=== PATIENT | male | born 1965 | race Caucasian/White ===

== ENCOUNTER 2018-06-06 19:45 | Inpatient (IN) ==
[2018-06-06] MEDS ORDERED: CEFEPIME 2,000 MG/12.5 ML VIAL IV STA (20:13)
[2018-06-06] MEDS ORDERED: ACETAMINOPHEN 1,000 MG/100 ML VIAL IV STA (20:13)
[2018-06-06] MEDS ORDERED: SODIUM CHLORIDE 0.9% 1000ML 1,000 ML IV ONE (20:13)
--- NOTE | 2018-06-06 20:29 | XRay Report ---
XR chest 1V portable CLINICAL HISTORY: Sepsis COMPARISON STUDY: March 2018 FINDINGS: The cardiac and mediastinal contours are normal. There is no evidence of focal pulmonary co nsolidation. There is no evidence of failure. No pleural effusions are visualized.[ IMPRESSION: No active disease in the chest. Electronically signed by: Bartolo Styles M.D. 06/06/2018 8:28 PM
[2018-06-06 21:06] LABS: Basophils # (auto) 0.04 K/uL (0-0.2); Basophils % (auto) 0.2 %; Eosinophils # (auto) 0.22 K/uL (0-0.5); Hematocrit (blood only) 41.2 % (42-52); Hemoglobin 14.2 g/dL (14.0-18.0); Immature Granulocytes # (auto) 0.07 K/uL (0.00-0.02); Immature Granulocytes % (auto) 0.3 %; Lymphocytes # (auto) 1.33 K/uL (1.2-3.4); Lymphocytes % (auto) 6.2 %; Mean Corpuscular Hgb Conc 34.5 g/dL (32-36); Mean Corpuscular Volume 89.8 fL (80-100); Mean Platelet Volume 10.1 fL (7.4-10.4); Monocytes # (auto) 0.61 K/uL (0.11-0.59); Monocytes % (auto) 2.9 %; Neutrophils # (auto) 19.11 K/uL (1.4-6.5); Neutrophils % (auto) 89.4 %; Platelet Count 298 K/uL (130-400); RDW Coefficient of Variation 13.3 % (11.5-14.5); RDW Standard Deviation 43.7 fL (36.4-46.3); Red Blood Count 4.59 M/uL (4.7-6.1); White Blood Count 21.38 K/uL (4.8-10.8)
[2018-06-06 21:22] LABS: Albumin Level 3.3 gm/dl (3.4-5.0); BUN Creatinine Ratio 14.5 (10-20); Calcium 9.4 mg/dl (8.5-10.1); Creatinine Clr Calc Pharmacy 78.9 ml/min; Est GFR (African American) 73.1; Magnesium 2.1 mg/dl (1.8-2.4); Potassium 3.6 mmol/L (3.5-5.1)
[2018-06-06 21:25] LABS: Albumin Globulin Ratio 0.7 (0.9-2); Bilirubin,Total 0.5 mg/dl (0.2-1); Globulin 4.5 gm/dl (2.5-4.0); Total Protein 7.8 gm/dl (6.4-8.2)
[2018-06-06 21:29] LABS: INR 1.1 (0.9-1.1); Partial Thromboplastin Ratio 0.9; Partial Thromboplastin Time 25.7 Seconds (21.0-31.0); Prothrombin Time 11.1 Seconds (9.0-12.0)
[2018-06-06 21:30] LABS: Influenza A virus by PCR Neg for Influ A (Neg); Influenza B virus by PCR Neg for Influ B (Neg)
[2018-06-06] MEDS ORDERED: IOVERSOL 100ml IV PRN (21:49)
--- NOTE | 2018-06-06 21:58 | CT Scan Report ---
CT ANGIOGRAM OF THE CHEST CLINICAL HISTORY: Atypical chest pain and sepsis. Possible pulmonary embolism. COMPARISON STUDY: Chest x-ray dated 06/06/2018 TECHNIQUE: Following the IV administration of 118 mL of Optiray-320, CT angiogram of the thorax was p erformed from the thoracic inlet to the lung bases utilizing the pulmonary embolus protocol. Images a re reviewed in the axial, sagittal, and coronal planes. IV contrast was administered without complica tion. MIP imaging was performed. A dose lowering technique was utilized adhering to the principles o f ALARA. CT DOSE: 494.04 mGy.cm FINDINGS: There is mild hilar and mediastinal lymphadenopathy. There is no pathologic axillary lymphadenopathy. There is a 23 mm subcarinal lymph node. There was no evidence of thoracic aortic dilatation. There is suboptimal lower lobe pulmonary arterial opacification. There are no filling defects to delia shaista acute pulmonary embolism. No pleural effusions are visualized. There are diffuse increased groundglass attenuation the lungs. There is mild lower lobe septal thicke pa. No pleural effusions are visualized. IMPRESSION: 1. Suboptimal lower lobe pulmonary arterial opacification, but no evidence of acute pulmonary embolis m 2. Mild mediastinal and hilar lymphadenopathy 3. Diffuse increased groundglass attenuation the lungs. Diagnostic considerations include a diffuse i nfectious/inflammatory process, or atypical presentation of pulmonary edema. Clinical and radiographi c follow-up is recommended Electronically signed by: Bartolo Styles M.D. 06/06/2018 9:56 PM
--- NOTE | 2018-06-06 22:00 | Emergency Department Note ---
Entered by Elsie Young acting as a scribe for Herve Burns MD History of Present Illness General Chief complaint: Abnormal Labs/Diagnostic Testing Stated complaint: WHITE BLOOD COUNT HIGH Time Seen by Provider: 06/06/18 20:10 Source: patient Mode of arrival: ambulatory Limitations: no limitations History of Present Illness Provider complaint: abnormal lab results Onset (ago): hour(s) ("few hours ago today") Location: chest Severity: moderate Pain Consistency: + constant Maximum Pain Intensity: 4 Associated symptoms: + fever/chills; no nausea/vomiting Treatments prior to arrival: other (Tylenol and Steroid inhaler) Patient is a 52 year old male presenting to the ED with abnormal labs found today. Patient states that about x4 months ago, he began to have a dry cough with fevers and headaches. He notes that his sx have been intermittent until x2 weeks ago, when his cough returned. Cough is moderate in severity and worsening since onset. Patient shares cough is mostly dry except when showering, where he coughs up white phlegm. shares that patient almost fell this morning while showering due to a coughing fit, and prompted patient to report to PCP. At PCP, patients WBC was noted to be 31,000. Patient notes he did have a fever last night. Patient notes he did take Tylenol a few hours ago. He shares he has taken x2 Z packs and one round of prednisone since original onset x4 months ago. Patient notes that his does have similar sx, but is on her 3rd round of antibiotics. Patient notes he has received his flu shot this year. He notes that he does take medication for high cholesterol. Patient has hx of asthma, and denies any smoking hx. He denies any other complaints or concerns at this time. Home Medications Home Medications Medication Instructions Recorded Confirmed Type Kumbucha 1 dose PO DAILY 06/06/18 06/06/18 History atorvastatin [Lipitor] 10 mg PO DAILY 06/06/18 06/06/18 History cetirizine [Zyrtec] 10 mg PO DAILY 06/06/18 06/06/18 History fluticasone furoate [Arnuity 1 puff INHALATION DAILY 06/06/18 06/06/18 History Ellipta] ibuprofen 400 mg PO TID PRN 06/06/18 06/06/18 History montelukast [Singulair] 10 mg PO DAILY 06/06/18 06/06/18 History multivitamin 1 tab PO DAILY 06/06/18 06/06/18 History Allergies Allergy/AdvReac Type Severity Reaction Status Date / Time Penicillins Allergy Intermediate RASH Unverified 06/06/18 22:41 BEE STINGS Allergy Severe ANAPHYLAXIS Uncoded 06/06/18 22:41 TREES , POLLEN Allergy Intermediate ICTHY,SNEEZ Uncoded 06/06/18 22:41 E,SWELLS Past Med/Surg History Medical History Asthma (Chronic) Family history non-contributory Surgical History No pertinent past surgical history Family History Other Family history non-contributory Social History Feels Safe at Home: Yes Review of Systems See HPI for pertinent positives & negatives. and A total of 10 systems reviewed and were otherwise negative Physical Exam Vital Signs Vital Signs - 24 hr 06/06/18 20:06 06/06/18 20:34 06/06/18 20:41 Temperature 37.2 C Temperature Source Oral Sepsis Recent Fever Within 48 Hours No Sepsis Action Taken by Nursing No Action Required Pulse Rate 71 70 Pulse Rate [Left Apical] Pulse Rate from SpO2 Sensor 68 Pulse Rhythm [Left Apical] Pulse Strength [Left Apical] Respiratory Rate 18 24 Respiratory Effort / Characteristics Non-Labored Spontaneous Respiratory Depth Normal Respiratory Pattern Blood Pressure 133/85 Blood Pressure [Right Arm] Blood Pressure Mean 101 Blood Pressure Mean [Right Arm] Blood Pressure Position [Right Arm] Pulse Oximetry 89 L 91 Oxygen Delivery Method Room Air Nasal Cannula 06/06/18 20:45 06/06/18 20:51 06/06/18 20:52 Temperature Temperature Source Sepsis Recent Fever Within 48 Hours Sepsis Action Taken by Nursing Pulse Rate 68 58 L Pulse Rate [Left Apical] 66 Pulse Rate from SpO2 Sensor 68 60 Pulse Rhythm [Left Apical] Regular Pulse Strength [Left Apical] Normal Respiratory Rate 22 20 22 Respiratory Effort / Characteristics Non-Labored Spontaneous SOB on Exertion Respiratory Depth Normal Respiratory Pattern Regular Blood Pressure 130/83 Blood Pressure [Right Arm] 130/83 Blood Pressure Mean 98 Blood Pressure Mean [Right Arm] 98 Blood Pressure Position [Right Arm] Sitting Pulse Oximetry 93 94 94 Oxygen Delivery Method Nasal Cannula 06/06/18 21:00 06/06/18 21:15 06/06/18 21:30 Temperature Temperature Source Sepsis Recent Fever Within 48 Hours Sepsis Action Taken by Nursing Pulse Rate 66 62 65 Pulse Rate [Left Apical] Pulse Rate from SpO2 Sensor 68 61 65 Pulse Rhythm [Left Apical] Pulse Strength [Left Apical] Respiratory Rate 22 26 H 29 H Respiratory Effort / Characteristics Respiratory Depth Respiratory Pattern Blood Pressure 126/78 130/68 Blood Pressure [Right Arm] Blood Pressure Mean 94 88 Blood Pressure Mean [Right Arm] Blood Pressure Position [Right Arm] Pulse Oximetry 93 95 94 Oxygen Delivery Method 06/06/18 21:51 06/06/18 21:57 06/06/18 22:00 Temperature Temperature Source Sepsis Recent Fever Within 48 Hours Sepsis Action Taken by Nursing Pulse Rate 66 66 66 Pulse Rate [Left Apical] Pulse Rate from SpO2 Sensor 66 67 65 Pulse Rhythm [Left Apical] Pulse Strength [Left Apical] Respiratory Rate 28 H 27 H 29 H Respiratory Effort / Characteristics Respiratory Depth Respiratory Pattern Blood Pressure 145/85 H 130/79 132/82 Blood Pressure [Right Arm] Blood Pressure Mean 105 96 98 Blood Pressure Mean [Right Arm] Blood Pressure Position [Right Arm] Pulse Oximetry 94 93 92 Oxygen Delivery Method 06/06/18 22:15 06/06/18 22:30 06/06/18 22:45 Temperature Temperature Source Sepsis Recent Fever Within 48 Hours Sepsis Action Taken by Nursing Pulse Rate 66 62 62 Pulse Rate [Left Apical] Pulse Rate from SpO2 Sensor 67 62 63 Pulse Rhythm [Left Apical] Pulse Strength [Left Apical] Respiratory Rate 26 H 8 L 14 Respiratory Effort / Characteristics Respiratory Depth Respiratory Pattern Blood Pressure 131/76 105/72 131/78 Blood Pressure [Right Arm] Blood Pressure Mean 94 83 95 Blood Pressure Mean [Right Arm] Blood Pressure Position [Right Arm] Pulse Oximetry 90 93 92 Oxygen Delivery Method 06/06/18 23:00 06/06/18 23:15 06/06/18 23:16 Temperature Temperature Source Sepsis Recent Fever Within 48 Hours Sepsis Action Taken by Nursing Pulse Rate 76 64 64 Pulse Rate [Left Apical] Pulse Rate from SpO2 Sensor 75 64 63 Pulse Rhythm [Left Apical] Pulse Strength [Left Apical] Respiratory Rate 13 22 20 Respiratory Effort / Characteristics Respiratory Depth Respiratory Pattern Blood Pressure 126/85 139/83 Blood Pressure [Right Arm] Blood Pressure Mean 98 101 Blood Pressure Mean [Right Arm] Blood Pressure Position [Right Arm] Pulse Oximetry 96 94 93 Oxygen Delivery Method 06/06/18 23:30 06/06/18 23:45 06/07/18 00:03 Temperature 36.5 C Temperature Source Oral Sepsis Recent Fever Within 48 Hours Sepsis Action Taken by Nursing Pulse Rate 61 59 L Pulse Rate [Left Apical] Pulse Rate from SpO2 Sensor 60 60 Pulse Rhythm [Left Apical] Pulse Strength [Left Apical] Respiratory Rate 18 17 Respiratory Effort / Characteristics Respiratory Depth Respiratory Pattern Blood Pressure 132/81 129/89 Blood Pressure [Right Arm] Blood Pressure Mean 98 102 Blood Pressure Mean [Right Arm] Blood Pressure Position [Right Arm] Pulse Oximetry 94 96 Oxygen Delivery Method GENERAL: Patient is in no acute distress. HEENT: No acute trauma, normocephalic atraumatic, mucous membranes moist, no nasal congestion, no scleral icterus. NECK: No stridor, no adenopathy, no meningismus, trachea is midline. LUNGS: Clear to auscultation bilaterally, no wheeze, no rhonchi, breath sounds equal. HEART: Without murmurs gallops or rubs, regular rate and rhythm. ABDOMEN: Soft, nontender, bowel sounds positive, no hernias, no peritonitis. EXTREMITIES: No cyanosis or edema, full range of motion of all the joints without pain or difficulty, no signs for acute trauma. NEUROLOGIC: Oriented x 3, no acute motor or sensory deficits, no focal weakness. SKIN: No rash, no jaundice, no diaphoresis. Course 2011: The patient was evaluated in room B09, and a complete history and physical examination were performed. 2129: Updated patient on plans for admission. He is agreeable to plan. 2147: Discussed case with Dr. Ifeoma Hu, who accepts patient for admission. 2220: Updated patient on CTA. Administered Medications Ioversol (Optiray 320 100ml) 118 ml IV ONCE PRN PRN Reason: Interaction Checking Stop: 06/10/18 21:48 Last Admin: 06/06/18 21:50 Dose: 118 ml Documented by: [id number] Discontinued Medications Acetaminophen (Ofirmev) 1,000 mg in 100 mls @ 400 mls/hr IV NOW STA Stop: 06/06/18 20:27 Last Infusion: 06/06/18 21:20 Dose: 0 mls/hr Documented by: [id number] Admin: 06/06/18 20:57 Dose: 400 mls/hr Documented by: [id number] Cefepime HCl (Maxipime) 2,000 mg in 12.5 mls @ 3.125 mls/min IV NOW STA Stop: 06/06/18 20:16 Last Admin: 06/06/18 21:54 Dose: 3.125 mls/min Documented by: [id number] Sodium Chloride (Nss 1000ml) 1,000 mls @ 999 mls/hr IV .Q1H1M ONE Stop: 06/06/18 21:13 Last Infusion: 06/06/18 21:55 Dose: 0 mls/hr Documented by: [id number] Admin: 06/06/18 20:58 Dose: 999 mls/hr Documented by: [id number] Medical Decision Making Differential Diagnosis Differential Diagnosis includes:pneumonia or bronchitis, malignancy, exacerbation of asthma, influenza, anemia, PE, or [place] Medical Records Attestation: I reviewed the patient's medical records. Home Medications Current Medication List: was personally reviewed by me Laboratory Data Attestation: I reviewed the patient's lab results. Result diagrams: 06/06/18 20:36 06/06/18 20:36 Lab Results 06/06/18 06/06/18 06/06/18 Range/Units 20:36 20:36 20:36 WBC 21.38 H D (4.8-10.8) K/uL RBC 4.59 L (4.7-6.1) M/uL Hgb 14.2 (14.0-18.0) g/dL Hct 41.2 L (42-52) % MCV 89.8 (80-100) fL MCH 30.9 (25-34) pg MCHC 34.5 (32-36) g/dL RDW Std Deviation 43.7 (36.4-46.3) fL RDW Coeff of Jose Roberto 13.3 (11.5-14.5) % Plt Count 298 (130-400) K/uL MPV 10.1 (7.4-10.4) fL Immature Gran % (Auto) 0.3 % Neut % (Auto) 89.4 % Lymph % (Auto) 6.2 % [place] % (Auto) 2.9 % Eos % (Auto) 1.0 % Baso % (Auto) 0.2 % Immature Gran # (Auto) 0.07 H (0.00-0.02) K/uL Neut # (Auto) 19.11 H (1.4-6.5) K/uL Lymph # (Auto) 1.33 (1.2-3.4) K/uL [place] # (Auto) 0.61 H (0.11-0.59) K/uL Eos # (Auto) 0.22 (0-0.5) K/uL Baso # (Auto) 0.04 (0-0.2) K/uL PT 11.1 (9.0-12.0) Seconds INR 1.1 (0.9-1.1) APTT 25.7 (21.0-31.0) Seconds PTT Ratio 0.9 Sodium 142 (136-145) mmol/L Potassium 3.6 (3.5-5.1) mmol/L Chloride 109 H (98-107) mmol/L Carbon Dioxide 26 (21-32) mmol/L Anion Gap 7.0 (3-11) BUN 19 H (7-18) mg/dl Creatinine 1.28 (0.6-1.4) mg/dl Est Cr Clr Drug Dosing 78.9 ml/min Est GFR ( Amer) 73.1 Est GFR (Non-Af Amer) 63.0 BUN/Creatinine Ratio 14.5 (10-20) Glucose 100 H (70-99) mg/dl Lactate (0.4-2.0) mmol/L Calcium 9.4 (8.5-10.1) mg/dl Magnesium 2.1 (1.8-2.4) mg/dl Total Bilirubin 0.5 (0.2-1) mg/dl AST 18 (15-37) U/L ALT 28 (12-78) U/L Alkaline Phosphatase 71 (45-117) U/L Total Protein 7.8 (6.4-8.2) gm/dl Albumin 3.3 L (3.4-5.0) gm/dl Globulin 4.5 H (2.5-4.0) gm/dl Albumin/Globulin Ratio 0.7 L (0.9-2) Influenza Type A (PCR) (Neg) Influenza Type B (PCR) (Neg) 06/06/18 06/06/18 Range/Units 20:40 20:48 WBC (4.8-10.8) K/uL RBC (4.7-6.1) M/uL Hgb (14.0-18.0) g/dL Hct (42-52) % MCV (80-100) fL MCH (25-34) pg MCHC (32-36) g/dL RDW Std Deviation (36.4-46.3) fL RDW Coeff of Jose Roberto (11.5-14.5) % Plt Count (130-400) K/uL MPV (7.4-10.4) fL Immature Gran % (Auto) % Neut % (Auto) % Lymph % (Auto) % [place] % (Auto) % Eos % (Auto) % Baso % (Auto) % Immature Gran # (Auto) (0.00-0.02) K/uL Neut # (Auto) (1.4-6.5) K/uL Lymph # (Auto) (1.2-3.4) K/uL [place] # (Auto) (0.11-0.59) K/uL Eos # (Auto) (0-0.5) K/uL Baso # (Auto) (0-0.2) K/uL PT (9.0-12.0) Seconds INR (0.9-1.1) APTT (21.0-31.0) Seconds PTT Ratio Sodium (136-145) mmol/L Potassium (3.5-5.1) mmol/L Chloride (98-107) mmol/L Carbon Dioxide (21-32) mmol/L Anion Gap (3-11) BUN (7-18) mg/dl Creatinine (0.6-1.4) mg/dl Est Cr Clr Drug Dosing ml/min Est GFR ( Amer) Est GFR (Non-Af Amer) BUN/Creatinine Ratio (10-20) Glucose (70-99) mg/dl Lactate 1.3 (0.4-2.0) mmol/L Calcium (8.5-10.1) mg/dl Magnesium (1.8-2.4) mg/dl Total Bilirubin (0.2-1) mg/dl AST (15-37) U/L ALT (12-78) U/L Alkaline Phosphatase (45-117) U/L Total Protein (6.4-8.2) gm/dl Albumin (3.4-5.0) gm/dl Globulin (2.5-4.0) gm/dl Albumin/Globulin Ratio (0.9-2) Influenza Type A (PCR) Neg for Influ A (Neg) Influenza Type B (PCR) Neg for Influ B (Neg) Imaging Data Radiologist's Impression: XR chest 1V portable CLINICAL HISTORY: Sepsis COMPARISON STUDY: March 2018 FINDINGS: The cardiac and mediastinal contours are normal. There is no evidence of focal pulmonary consolidation. There is no evidence of failure. No pleural effusions are visualized. IMPRESSION: No active disease in the chest. Electronically signed by: Bartolo Styles M.D. 06/06/2018 8:[address] ANGIOGRAM OF THE CHEST CLINICAL HISTORY: Atypical chest pain and sepsis. Possible pulmonary embolism. COMPARISON STUDY: Chest x-ray dated 06/06/2018 TECHNIQUE: Following the IV administration of 118 mL of Optiray-320, CT angiogram of the thorax was performed from the thoracic inlet to the lung bases utilizing the pulmonary embolus protocol. Images are reviewed in the axial, sagittal, and coronal planes. IV contrast was administered without complication. MIP imaging was performed. A dose lowering technique was utilized adhering to the principles of ALARA. CT DOSE: 494.04 mGy.cm FINDINGS: There is mild hilar and mediastinal lymphadenopathy. There is no pathologic axillary lymphadenopathy. There is a 23 mm subcarinal lymph node. There was no evidence of thoracic aortic dilatation. There is suboptimal lower lobe pulmonary arterial opacification. There are no filling defects to indicate acute pulmonary embolism. No pleural effusions are visualized. There are diffuse increased groundglass attenuation the lungs. There is mild lower lobe septal thickening. No pleural effusions are visualized. IMPRESSION: 1. Suboptimal lower lobe pulmonary arterial opacification, but no evidence of acute pulmonary embolism 2. Mild mediastinal and hilar lymphadenopathy 3. Diffuse increased groundglass attenuation the lungs. Diagnostic considerations include a diffuse infectious/inflammatory process, or atypical presentation of pulmonary edema. Clinical and radiographic follow-up is recommended Electronically signed by: Bartolo Styles M.D. 06/06/2018 9:56 PM ECG Data Attestation: I personally reviewed and interpreted this ECG as follows: Indication: other (abnormal labs) Rate (beats per minute): 58 Rhythm: sinus bradycardia Findings: no PAC, no PVC, no ST elevation and no ectopy Blood Pressure Blood Pressure Findings: Normal blood pressure MDM Narrative There is a significant leukocytosis at 21,000. No concerning anemia. No coagulopathy. No significant electrolyte abnormality or kidney failure. Lactic acid level is not elevated making sepsis less likely. No evidence for hepatitis. Influenza testing is negative. Chest x-ray does not show pneumonia or CHF. Chest CT shows a diffuse inflammation consistent with a potential diffuse pneumonitis. No evidence for pulmonary embolus. Blood cultures are pending. The patient did present hypoxic. He was placed on nasal cannula O2. He received IV Tylenol, IV cefepime and IV saline. He seems to be resting comfortably. Patient has a high white count, fever and hypoxia. He does have a respiratory infection, possibly diffuse pneumonia. I do think a hospital stay is warranted. I spoke to the patient and case management social worker. The on-call hospitalist was consulted. Impression & Plan Hypoxia, Shortness of breath, Leukocytosis Discharge Plan Visit Data Chief Complaint: Abnormal Labs/Diagnostic Testing Stated Complaint: WHITE BLOOD COUNT HIGH ED Provider: Herve Burns Discharge Problem: Hypoxia, Shortness of breath, Leukocytosis Forms Stand Alone Forms: [facility] Prescriptions Prescriptions: No Action cetirizine [Zyrtec] 10 mg Tablet 10 mg PO DAILY RF: 0 atorvastatin [Lipitor] 10 mg tablet 10 mg PO DAILY RF: 0 ibuprofen 200 mg Tablet 400 mg PO TID PRN (Reason: Pain) RF: 0 montelukast [Singulair] 10 mg tablet 10 mg PO DAILY RF: 0 Arnuity Ellipta 100 mcg/actuation blister with device 1 puff inhalation DAILY RF: 0 Kumbucha 1 dose PO DAILY RF: 0 multivitamin Tablet 1 tab PO DAILY RF: 0 Discharge Problem: Leukocytosis Qualifiers: Leukocytosis type: unspecified Qualified Code(s): D72.829 - Elevated white blood cell count, unspecified The scribe's documentation has been prepared under my direction and personally reviewed by me in its entirety. I confirm that the note above accurately reflects all work, treatment, procedures, and medical decision making performed by me.
--- NOTE | 2018-06-06 23:58 | History & Physical Report ---
Date of Service June 06, 2018 Assessment & Plan (1) Hypoxia: 52-year-old male with past medical history of asthma and hyperlipidemia presents with leukocytosis and hypoxia. Patient has baseline pulmonary symptoms and fever for the past month. Symptoms have now worsen, but he was sent over by PCP today for lab findings. Hypoxia and leukocytosis, feverssymptoms since January CT and chest x-ray does not show distinct consolidationsit did show "diffuse groundglass attenuation of the lungs and hilar nodes, consider diffuse infectious/inflammatory process" Considering the following differential to describe the patient's symptoms hypersensitivity pneumonitis, interstitial pneumonia, atypical pneumonia, congestive heart failure PFTs on 04/27/2018 showed mild airflow obstructionnormal forced vital capacity, FEV1 was mildly decreased, mild decrease of FEV1/FVC ratio. Repeat PFTs with bronchodilator did not show significant improvementmaking this less likely secondary to history of asthma Obtaining the following; ESR, CRP, sputum cultures, blood cultures, pro- calcitonin, BMP, HIV, CHRIS EBV pending. Flu and Lyme are negative Empiric antibiotic treatmenttreating as an atypical pneumoniadoxycycline IV 100 mg twice daily Hyperlipidemia Continue statin Asthma Continue inhalers, continue cetirizine, continue montelukast FEN Regular diet DVT prophylaxis SCDs/ambulation Code Full (2) Shortness of breath: (3) Leukocytosis: (4) No pertinent past surgical history: (5) Asthma: History of Present Illness Primary Care Provider: Danay Bingham MD 52-year-old male with a history of asthma and hyperlipidemia presents with leukocytosis and hypoxia. Patient was getting lab work today and was found to have a white count of 31,000. The patient was being evaluated for pulmonary symptoms and fevers that he has been having for the past couple monthsstarting in January. The patient has had follow-up with primary care doctor and is been treated for asthma exacerbation and atypical pneumonia with 2 courses of Z-Michael. The patient states that he gets better for a little bit but the symptoms return. His symptoms include dyspnea with exertion, cough, fever and fatigue. He states that the fever happens in the evenings a couple times throughout the week and his temperature is usually as high as 102 F. His states that she is also been sick during this duration, but not as sick. She is also been on antibiotics. Patient denies hemoptysis. He denies travel, IV drug use, risky sexual activity, concern for HIV. 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 He does describe that he was cleaning his basement this January before the symptoms began. He was digging and states that there was a lot of mold in the basement. Abdomen; no abdominal pain, no nausea/vomiting/diarrhea Chest; no chest pain, no hemoptysis MSK; no joint pains, no calf tenderness Skin; no rash, no redness or warmth of the skin ; no issues with urinationno hematuria, no dysuria, no increased frequency Allergies Allergy/AdvReac Type Severity Reaction Status Date / Time bee venom protein (honey bee) Allergy Severe Anaphylaxis Verified 06/07/18 01:13 Penicillins Allergy Intermediate RASH Unverified 06/06/18 22:41 Home Medications Home Medications Medication Instructions Recorded Confirmed Type Kumbucha 1 dose PO DAILY 06/06/18 06/06/18 History atorvastatin [Lipitor] 10 mg PO DAILY 06/06/18 06/06/18 History cetirizine [Zyrtec] 10 mg PO DAILY 06/06/18 06/06/18 History fluticasone furoate [Arnuity 1 puff INHALATION DAILY 06/06/18 06/06/18 History Ellipta] ibuprofen 400 mg PO TID PRN 06/06/18 06/06/18 History montelukast [Singulair] 10 mg PO DAILY 06/06/18 06/06/18 History multivitamin 1 tab PO DAILY 06/06/18 06/06/18 History Past Med/Surg History Medical History Asthma (Chronic) Family history non-contributory Surgical History No pertinent past surgical history Family History Other Family history non-contributory Social History Feels Safe at Home: Yes Review of Systems All systems reviewed & are unremarkable except as noted in HPI & below Physical Exam Vital Signs (Past 24 Hours): Last Vital Signs Temp 37.2 C 06/06/18 20:06 Pulse 76 06/06/18 23:00 Resp 13 06/06/18 23:00 BP 126/85 06/06/18 23:00 Pulse Ox 96 06/06/18 23:00 Constitutional: WD/WN, vitals as above Eyes: PERRL, conjunctivae normal, anicteric sclerae ENMT: external ear and nose normal, oropharynx normal Neck: trachea midline, no thyromegaly Respiratory: normal respiratory effort, lungs clear to auscultation Auscultation: + crackles (Bilateral bases) Cardiovascular: RRR, no murmur, no edema Gastrointestinal (Abdomen): normal bowel sounds, soft, nontender, no hepatosplenomegaly Skin: no rashes, warm and dry Neurologic: PERRL, EOMI, accommodation nl, no face palsy, no dysarthria Psychiatric: A+Ox3, euthymic affect Results & Data Laboratory Results Laboratory Last Values WBC 21.38 K/uL (4.8-10.8) H D 06/06/18 20:36 RBC 4.59 M/uL (4.7-6.1) L 06/06/18 20:36 Hgb 14.2 g/dL (14.0-18.0) 06/06/18 20:36 Hct 41.2 % (42-52) L 06/06/18 20:36 MCV 89.8 fL (80-100) 06/06/18 20:36 MCH 30.9 pg (25-34) 06/06/18 20:36 MCHC 34.5 g/dL (32-36) 06/06/18 20:36 RDW Std Deviation 43.7 fL (36.4-46.3) 06/06/18 20:36 RDW Coeff of Jose Roberto 13.3 % (11.5-14.5) 06/06/18 20:36 Plt Count 298 K/uL (130-400) 06/06/18 20:36 MPV 10.1 fL (7.4-10.4) 06/06/18 20:36 Immature Gran % (Auto) 0.3 % 06/06/18 20:36 Neut % (Auto) 89.4 % 06/06/18 20:36 Lymph % (Auto) 6.2 % 06/06/18 20:36 [place] % (Auto) 2.9 % 06/06/18 20:36 Eos % (Auto) 1.0 % 06/06/18 20:36 Baso % (Auto) 0.2 % 06/06/18 20:36 Immature Gran # (Auto) 0.07 K/uL (0.00-0.02) H 06/06/18 20:36 Neut # (Auto) 19.11 K/uL (1.4-6.5) H 06/06/18 20:36 Lymph # (Auto) 1.33 K/uL (1.2-3.4) 06/06/18 20:36 [place] # (Auto) 0.61 K/uL (0.11-0.59) H 06/06/18 20:36 Eos # (Auto) 0.22 K/uL (0-0.5) 06/06/18 20:36 Baso # (Auto) 0.04 K/uL (0-0.2) 06/06/18 20:36 PT 11.1 Seconds (9.0-12.0) 06/06/18 20:36 INR 1.1 (0.9-1.1) 06/06/18 20:36 APTT 25.7 Seconds (21.0-31.0) 06/06/18 20:36 PTT Ratio 0.9 06/06/18 20:36 Sodium 142 mmol/L (136-145) 06/06/18 20:36 Potassium 3.6 mmol/L (3.5-5.1) 06/06/18 20:36 Chloride 109 mmol/L (98-107) H 06/06/18 20:36 Carbon Dioxide 26 mmol/L (21-32) 06/06/18 20:36 Anion Gap 7.0 (3-11) 06/06/18 20:36 BUN 19 mg/dl (7-18) H 06/06/18 20:36 Creatinine 1.28 mg/dl (0.6-1.4) 06/06/18 20:36 Est Cr Clr Drug Dosing 78.9 ml/min 06/06/18 20:36 Est GFR ( Amer) 73.1 06/06/18 20:36 Est GFR (Non-Af Amer) 63.0 06/06/18 20:36 BUN/Creatinine Ratio 14.5 (10-20) 06/06/18 20:36 Glucose 100 mg/dl (70-99) H 06/06/18 20:36 Lactate 1.3 mmol/L (0.4-2.0) 06/06/18 20:48 Calcium 9.4 mg/dl (8.5-10.1) 06/06/18 20:36 Magnesium 2.1 mg/dl (1.8-2.4) 06/06/18 20:36 Total Bilirubin 0.5 mg/dl (0.2-1) 06/06/18 20:36 AST 18 U/L (15-37) 06/06/18 20:36 ALT 28 U/L (12-78) 06/06/18 20:36 Alkaline Phosphatase 71 U/L (45-117) 06/06/18 20:36 Total Protein 7.8 gm/dl (6.4-8.2) 06/06/18 20:36 Albumin 3.3 gm/dl (3.4-5.0) L 06/06/18 20:36 Globulin 4.5 gm/dl (2.5-4.0) H 06/06/18 20:36 Albumin/Globulin Ratio 0.7 (0.9-2) L 06/06/18 20:36 Influenza Type A (PCR) Neg for Influ A (Neg) 06/06/18 20:40 Influenza Type B (PCR) Neg for Influ B (Neg) 06/06/18 20:40 Diagnostic Findings [place], [place] [phone] CT Scan Report Patient: NEAL MOROCHO HAdmit Date: 06/06/18 MR#: [id number]: [address] Acct ID:[id number]: Date: 1965[facility] Zip: [place] [address] Age: 52Location: ED Sex: M Room/Bed: Att Phy: Diagnosis: WHITE BLOOD COUNT HIGH Leyla Phy: Danay Bingham MDService Date: 06/06/18 Fam Phy: Interpreting Phy: Bartolo Styles MD Admit Phy: Ordering Phy: Herve Burns M.D. cc: ~ CT ANGIOGRAM OF THE CHEST CLINICAL HISTORY: Atypical chest pain and sepsis. Possible pulmonary embolism. COMPARISON STUDY: Chest x-ray dated 06/06/2018 TECHNIQUE: Following the IV administration of 118 mL of Optiray-320, CT angiogram of the thorax was performed from the thoracic inlet to the lung bases utilizing the pulmonary embolus protocol. Images are reviewed in the axial, sagittal, and coronal planes. IV contrast was administered without complication. MIP imaging was performed. A dose lowering technique was utilized adhering to the principles of ALARA. CT DOSE: 494.04 mGy.cm FINDINGS: There is mild hilar and mediastinal lymphadenopathy. There is no pathologic axillary lymphadenopathy. There is a 23 mm subcarinal lymph node. There was no evidence of thoracic aortic dilatation. There is suboptimal lower lobe pulmonary arterial opacification. There are no filling defects to indicate acute pulmonary embolism. No pleural effusions are visualized. There are diffuse increased groundglass attenuation the lungs. There is mild lower lobe septal thickening. No pleural effusions are visualized. IMPRESSION: 1. Suboptimal lower lobe pulmonary arterial opacification, but no evidence of acute pulmonary embolism 2. Mild mediastinal and hilar lymphadenopathy 3. Diffuse increased groundglass attenuation the lungs. Diagnostic considerations include a diffuse infectious/inflammatory process, or atypical presentation of pulmonary edema. Clinical and radiographic follow-up is recommended Electronically signed by: Bartolo Styles M.D. 06/06/2018 9:56 PM Dictated: 06/06/182151 Transcribed: 06/06/182151 XRay Report Patient: NEAL MOROCHO HAdmit Date: 06/06/18 MR#: [id number]: [address] Acct ID:[id number]: Date: 1965[facility] Zip: [place] [address] Age: 52Location: ED Sex: M Room/Bed: Att Phy: Diagnosis: WHITE BLOOD COUNT HIGH Leyla Phy: Danay Bingham MDService Date: 06/06/18 Fam Phy: Interpreting Phy: Bartolo Styles MD Admit Phy: Ordering Phy: Herve Burns M.D. cc: ~ XR chest 1V portable CLINICAL HISTORY: Sepsis COMPARISON STUDY: March 2018 FINDINGS: The cardiac and mediastinal contours are normal. There is no evidence of focal pulmonary consolidation. There is no evidence of failure. No pleural effusions are visualized.[ IMPRESSION: No active disease in the chest. Electronically signed by: Bartolo Styles M.D. 06/06/2018 8:28 PM Dictated: 06/06/182026 Transcribed: 06/06/182026 Supervising Physician Co-Signing Physician Notes apollo seen and examined, chart reviewed, case discussed with Dr. Kapoor and I eva lopez his assessment and plan as documented above. Briefly, patient is a 52yo male with history of asthma presenting with leukocytosis, hypoxia, fevers. Patient reports cleaning out his basement in early January - was exposed to mold. In late January he began experiencing coug/SOB/fever/body aches and headache. He was given a Z-pack by his PCP. Returned 2 weeks later with similar symptoms and was given a second Z-pack and 10 days of Prednisone. Fevers and headache improved with treatment but cough and SOB persisted. Patietn also wtih fever to 102, last one this AM, chest tightness, SOB, GUERRA with minimal exertion. Patient was a runner previously and now becomes SOB after climbing a flight of stairs. PFTs obtained on 04/27/18 with mild obstructive pattern, no reversibility with bronchodilators. Patient seen by PCP today and had laboratory work - sent to ER due to leukocytosis, WBC=31. Never smoker, no history of CHF, had recent stress testing that was unremarkable. No occupational or recreational exposures. Hypoxic in ER to 88% on RA requiring supplemental O2. CT with mild mediastinal and hilar lymphadenopathy and diffuse increased groundglass attenuation the lungs. Diagnostic considerations include a diffuse infectious/inflammatory process, or atypical presentation of pulmonary edema. Exam with crackles in bilateral bases. No rhonchi or wheezes Remainder of exam unremarkable Assessment/Plan: Patient with 3+ months of progressive GUERRA, dry cough as well as fevers/chills, hypoxia. CT with ground glass opacities. ?nonspecific interstitial PNA - hyersensitivity pneumonitis, mold exposure? -Check ProCal -Check ESR and CRP -Check HIV and CHRIS -Pulmonary consult for additional recommendations - appreciate assistance -Remainder of plan as above Resident Activity Tracking Resident Involvement: Resident Care Provided Care Provided: Adult [facility] (1) Leukocytosis Leukocytosis type: unspecified Qualified Code(s): D72.829 - Elevated white blood cell count, unspecified
[2018-06-07] MEDS ORDERED: MAGNESIUM HYDROXIDE SUSP 30 ML UDC PO PRN (00:45)
[2018-06-07] MEDS ORDERED: IBUPROFEN 200 MG TAB PO PRN (00:45)
[2018-06-07] MEDS ORDERED: ACETAMINOPHEN 325 MG TAB PO PRN (00:45)
[2018-06-07] MEDS ORDERED: ONDANSETRON INJ 2 MG/ML 2 ML VIAL IV PRN (00:45)
[2018-06-07] MEDS ORDERED: ALUMINUM/MAGNESIUM SUSP 30 ML UDC PO PRN (00:45)
[2018-06-07] MEDS ORDERED: POLYETHYLENE (MIRALAX) 17 GM PACK PO PRN (00:45)
[2018-06-07] MEDS: DOXYCYCLINE HYCLATE 100 MG in DEXTROSE 5% 100 ML IV SCH ×2 (01:50→14:29)
[2018-06-07 07:22] LABS: C Reactive Protein 8.38 mg/dl (0-0.29)
[2018-06-07] MEDS ORDERED: ATORVASTATIN 10 MG TAB PO SCH ×2 (09:00→15:00)
[2018-06-07] MEDS ORDERED: MONTELUKAST SODIUM 10 MG TABLET PO SCH (09:00)
[2018-06-07] MEDS: CETIRIZINE HCL 10 MG TABLET PO SCH (09:12)
--- NOTE | 2018-06-07 10:26 | Family Medicine Progress Note ---
Date of Service June 07, 2018 Assessment & Plan (1) Hypoxia: Pt is a 52yo with PMHx of asthma and obstructive PFT results, who presents with leukocytosis, hypoxia and URI symptoms of approximately 3 months duration. Hypoxia with URI symptoms and leukocytosis. -CT shows ground glass opacifications and DDx is broad (atypical pneumonia, interstitial pneumonia, hypersensitivity) -ESR, CRP also elevated. CHRIS pending. -Lyme, HIV, flu, mono negative. EBV pending. -peripheral smear shows reactive leukocytosis. -Pulmonary consulted-possible BAL tomorrow. NPO after midnight. -s/p 2 azithromycin courses since January -Continue doxycycline currently, MRSA nasal swab pending. -continue O2 supplementation as needed. Asthma -continue home fluticasone inhaler, cetirizine and Singulair Hyperlipidemia -continue home lipitor Code: FULL CODE DVT Proph: SCDs Supervising Physician Co-Signing Physician Notes Resident Physician Supervision Note: I independently interviewed and examined the patient and verified the orantes history and physical, reviewed labs and image studies, discussed the case with the resident Dr. Marquez and agree with the findings and care plan. Subjective Pt states he's unchanged from admission. No significant fam hx but hx of ticks on person around December when symptoms started. Denies sick contacts except for , though to a lesser degree. Has cat and dog at home. Fevers, chills, night sweats when off abx. Cough, headache, SOB. Never hemoptysis. Review of Systems All systems reviewed & are unremarkable except as noted in HPI & below Physical Exam Vital Signs (Past 24 Hours): Last Vital Signs Temp 36.4 C L 06/07/18 07:19 Pulse 61 06/07/18 07:19 Resp 18 06/07/18 07:19 BP 133/75 06/07/18 07:19 Pulse Ox 95 06/07/18 07:19 General: Alert, oriented. HEENT: NC/AT, PERRLA, EOMI, oropharynx moist. NC in nares. Chest: Nontender to palpation. CV: RRR, Normal s1, s2. No murmurs appreciated Resp: Fine crackles at bases bilaterally. Abdomen: Soft, nontender, nondistended. No guarding. No organomegaly appreciated. Extremities: No edema. Results & Data Laboratory Results Laboratory Results - last 24 hr 06/06/18 06/06/18 06/06/18 20:36 20:36 20:36 WBC 21.38 H D RBC 4.59 L Hgb 14.2 Hct 41.2 L MCV 89.8 MCH 30.9 MCHC 34.5 RDW Std Deviation 43.7 RDW Coeff of Jose Roberto 13.3 Plt Count 298 MPV 10.1 Immature Gran % (Auto) 0.3 Neut % (Auto) 89.4 Lymph % (Auto) 6.2 [place] % (Auto) 2.9 Eos % (Auto) 1.0 Baso % (Auto) 0.2 Immature Gran # (Auto) 0.07 H Neut # (Auto) 19.11 H Lymph # (Auto) 1.33 [place] # (Auto) 0.61 H Eos # (Auto) 0.22 Baso # (Auto) 0.04 Peripher Smr Path Cons ESR PT 11.1 INR 1.1 APTT 25.7 PTT Ratio 0.9 Sodium 142 Potassium 3.6 Chloride 109 H Carbon Dioxide 26 Anion Gap 7.0 BUN 19 H Creatinine 1.28 Est Cr Clr Drug Dosing 78.9 Est GFR ( Amer) 73.1 Est GFR (Non-Af Amer) 63.0 BUN/Creatinine Ratio 14.5 Glucose 100 H Lactate Calcium 9.4 Magnesium 2.1 Total Bilirubin 0.5 AST 18 ALT 28 Alkaline Phosphatase 71 C-Reactive Protein NT-Pro-B Natriuret Pep Total Protein 7.8 Albumin 3.3 L Globulin 4.5 H Albumin/Globulin Ratio 0.7 L Procalcitonin Nasal Screen MRSA (PCR) HIV 1&2 Ab/P24 Ag 4thGn Influenza Type A (PCR) Influenza Type B (PCR) 06/06/18 06/06/18 06/07/18 20:40 20:48 06:01 WBC RBC Hgb Hct MCV MCH MCHC RDW Std Deviation RDW Coeff of Jose Roberto Plt Count MPV Immature Gran % (Auto) Neut % (Auto) Lymph % (Auto) [place] % (Auto) Eos % (Auto) Baso % (Auto) Immature Gran # (Auto) Neut # (Auto) Lymph # (Auto) [place] # (Auto) Eos # (Auto) Baso # (Auto) Peripher Smr Path Cons ESR 63 H PT INR APTT PTT Ratio Sodium Potassium Chloride Carbon Dioxide Anion Gap BUN Creatinine Est Cr Clr Drug Dosing Est GFR ( Amer) Est GFR (Non-Af Amer) BUN/Creatinine Ratio Glucose Lactate 1.3 Calcium Magnesium Total Bilirubin AST ALT Alkaline Phosphatase C-Reactive Protein NT-Pro-B Natriuret Pep Total Protein Albumin Globulin Albumin/Globulin Ratio Procalcitonin Nasal Screen MRSA (PCR) HIV 1&2 Ab/P24 Ag 4thGn Influenza Type A (PCR) Neg for Influ A Influenza Type B (PCR) Neg for Influ B 06/07/18 06/07/18 06/07/18 06:01 06:01 06:01 WBC RBC Hgb Hct MCV MCH MCHC RDW Std Deviation RDW Coeff of Jose Roberto Plt Count MPV Immature Gran % (Auto) Neut % (Auto) Lymph % (Auto) [place] % (Auto) Eos % (Auto) Baso % (Auto) Immature Gran # (Auto) Neut # (Auto) Lymph # (Auto) [place] # (Auto) Eos # (Auto) Baso # (Auto) Peripher Smr Path Cons ESR PT INR APTT PTT Ratio Sodium Potassium Chloride Carbon Dioxide Anion Gap BUN Creatinine Est Cr Clr Drug Dosing Est GFR ( Amer) Est GFR (Non-Af Amer) BUN/Creatinine Ratio Glucose Lactate Calcium Magnesium Total Bilirubin AST ALT Alkaline Phosphatase C-Reactive Protein 8.38 H NT-Pro-B Natriuret Pep 111 Total Protein Albumin Globulin Albumin/Globulin Ratio Procalcitonin 0.29 Nasal Screen MRSA (PCR) HIV 1&2 Ab/P24 Ag 4thGn Neg Influenza Type A (PCR) Influenza Type B (PCR) 06/07/18 06/07/18 06:01 09:20 WBC RBC Hgb Hct MCV MCH MCHC RDW Std Deviation RDW Coeff of Jose Roberto Plt Count MPV Immature Gran % (Auto) Neut % (Auto) Lymph % (Auto) [place] % (Auto) Eos % (Auto) Baso % (Auto) Immature Gran # (Auto) Neut # (Auto) Lymph # (Auto) [place] # (Auto) Eos # (Auto) Baso # (Auto) Peripher Smr Path Cons ESR PT INR APTT PTT Ratio Sodium Potassium Chloride Carbon Dioxide Anion Gap BUN Creatinine Est Cr Clr Drug Dosing Est GFR ( Amer) Est GFR (Non-Af Amer) BUN/Creatinine Ratio Glucose Lactate Calcium Magnesium Total Bilirubin AST ALT Alkaline Phosphatase C-Reactive Protein NT-Pro-B Natriuret Pep Total Protein Albumin Globulin Albumin/Globulin Ratio Procalcitonin Nasal Screen MRSA (PCR) Negative HIV 1&2 Ab/P24 Ag 4thGn Influenza Type A (PCR) Influenza Type B (PCR) Medications Administered Home Medications Kumbucha 1 dose PO DAILY 06/06/18 [History Confirmed 06/06/18] atorvastatin [Lipitor] 10 mg PO DAILY 06/06/18 [History Confirmed 06/06/18] cetirizine [Zyrtec] 10 mg PO DAILY 06/06/18 [History Confirmed 06/06/18] fluticasone furoate [Arnuity Ellipta] 1 puff INHALATION DAILY 06/06/18 [History Confirmed 06/06/18] ibuprofen 400 mg PO TID PRN 06/06/18 [History Confirmed 06/06/18] montelukast [Singulair] 10 mg PO DAILY 06/06/18 [History Confirmed 06/06/18] multivitamin 1 tab PO DAILY 06/06/18 [History Confirmed 06/06/18] Active Medications Acetaminophen (Tylenol) 650 mg PO Q4H PRN PRN Reason: pain/fever Stop: 07/07/18 00:44 Al Hydrox/Mg Hydrox/Simethicone (Maalox) 30 ml PO Q6H PRN PRN Reason: Dyspepsia Stop: 07/07/18 00:44 Atorvastatin Calcium (Lipitor) 10 mg PO TODAY@1500 [facility] Stop: 07/07/18 14:59 Last Admin: 06/07/18 14:30 Dose: 10 mg Documented by: Cetirizine HCl (Zyrtec) 10 mg PO DAILY [facility] Stop: 07/07/18 08:59 Last Admin: 06/07/18 09:12 Dose: 10 mg Documented by: Doxycycline Hyclate 100 mg/ (Dextrose) 110 mls @ 50 mls/hr IV Q12H ISAÍAS Stop: 06/14/18 01:59 Last Admin: 06/07/18 14:29 Dose: 50 mls/hr Documented by: Ibuprofen (Advil) 400 mg PO TID PRN PRN Reason: Pain Stop: 07/07/18 00:44 Ioversol (Optiray 320 100ml) 118 ml IV ONCE PRN PRN Reason: Interaction Checking Stop: 06/10/18 21:48 Last Admin: 06/06/18 21:50 Dose: 118 ml Documented by: Magnesium Hydroxide (Milk Of Magnesia) 30 ml PO Q6H PRN PRN Reason: Constipation Stop: 07/07/18 00:44 Miscellaneous (Order Awaiting Action) 1 ea N/A QS [facility] Stop: 07/07/18 01:29 Last Admin: 06/07/18 09:13 Dose: Not Given Documented by: Montelukast Sodium (Singulair) 10 mg PO Q24H [facility] Stop: 07/07/18 21:59 Ondansetron HCl (Zofran) 4 mg IV Q6H PRN PRN Reason: Nausea Stop: 07/07/18 00:44 Polyethylene Glycol (Miralax Powder Packet) 17 gm PO DAILY PRN PRN Reason: Constipation Stop: 07/07/18 00:44
[2018-06-07] MEDS: ATORVASTATIN 10 MG TAB PO SCH (14:30)
[2018-06-07] MEDS ORDERED: SODIUM CHLORIDE 0.65% NA SOLN 45 ML (OCEAN) ONE (14:41)
--- NOTE | 2018-06-07 16:56 | Anesthesiology Consultation ---
Date of Service June 07, 2018 Assessment & Plan Chart Review Chart Review: Acceptable Risk for Surgery and Patient NOT seen in Pre Admission Testing Consults Requested none History Surgery Operation Date: 06/08/18 07:15 Proposed Procedures p Right Thoracoscopy with Wedge Biopsy (Single Lumen Tube) - Cj Monsivais MD, FACS Height/Weight Height: 1.91 m Weight: 97 kg Allergies Allergy/AdvReac Type Severity Reaction Status Date / Time bee venom protein (honey bee) Allergy Severe Anaphylaxis Verified 06/07/18 01:13 Penicillins Allergy Intermediate RASH Unverified 06/06/18 22:41 Medications Home Medications Medication Instructions Recorded Confirmed Last Taken Kumbucha 1 dose PO DAILY 06/06/18 06/06/18 Unknown atorvastatin [Lipitor] 10 mg PO DAILY 06/06/18 06/06/18 06/06/18 15:00 cetirizine [Zyrtec] 10 mg PO DAILY 06/06/18 06/06/18 06/06/18 10:00 fluticasone furoate [Arnuity 1 puff INHALATION DAILY 06/06/18 06/06/18 06/06/18 07:00 Ellipta] ibuprofen 400 mg PO TID PRN 06/06/18 06/06/18 06/06/18 14:00 montelukast [Singulair] 10 mg PO DAILY 06/06/18 06/06/18 06/06/18 06:30 multivitamin 1 tab PO DAILY 06/06/18 06/06/18 Unknown Active Medications Generic Name Dose Route Start Last Admin Trade Name Freq PRN Reason Stop Dose Admin Atorvastatin Calcium 10 mg 06/07/18 15:00 06/07/18 14:30 Lipitor PO 07/07/18 14:59 10 mg TODAY@1500 ISAÍAS Administration Cetirizine HCl 10 mg 06/07/18 09:00 06/07/18 09:12 Zyrtec PO 07/07/18 08:59 10 mg DAILY ISAÍAS Administration Doxycycline Hyclate 100 mg/ 110 mls @ 50 mls/hr 06/07/18 02:00 06/07/18 16:43 Dextrose IV 06/14/18 01:59 Infused Q12H ISAÍAS Infusion Ioversol 118 ml 06/06/18 21:49 06/06/18 21:50 Optiray 320 100ml IV 06/10/18 21:48 118 ml ONCE PRN Administration Interaction Checking Past Medical History Medical History Asthma (Chronic) Hyperlipidemia Family history non-contributory Past Family History Family History Other Family history non-contributory Past Surgical History Surgical History No pertinent past surgical history Social History Smoking Status: Never smoker Hx Alcohol Use: Yes Alcohol type: wine and hard liquor alcohol intake frequency: a few times a month Alcohol Intake Frequency Comment: once a week Hx Substance Use: No substance use type: does not use Physical Exam Vital Signs Last Vital Signs Temp 36.8 C 06/07/18 15:42 Pulse 110 H 06/07/18 15:42 Resp 18 06/07/18 15:42 BP 127/79 06/07/18 15:42 Pulse Ox 95 06/07/18 15:42 Testing Electrocardiogram Date: 06/06/18 Findings: + SB @ (58) FINDINGS: The cardiac and mediastinal contours are normal. There is no evidence of focal pulmonary consolidation. There is no evidence of failure. No pleural effusions are visualized.[ IMPRESSION: No active disease in the chest. Chest X-Ray Date: 06/06/18 Findings: + NAD FINDINGS: The cardiac and mediastinal contours are normal. There is no evidence of focal pulmonary consolidation. There is no evidence of failure. No pleural effusions are visualized.[ IMPRESSION: No active disease in the chest. Pulmonary Function Test Date: 04/27/18 Spirometry shows a normal forced vital capacity. FEV1 was mildly decreased as was the FEV1/FVC ratio. This reflects mild airflow obstruction. Repeat study done following bronchodilator showed no significant change in function. Lung volumes are within the limits of normal. Diffusion was normal at 110%. Laboratory Results 06/06/18 20:36 06/06/18 20:36 PT 11.1 Seconds (9.0-12.0) 06/06/18 20:36 INR 1.1 (0.9-1.1) 06/06/18 20:36 APTT 25.7 Seconds (21.0-31.0) 06/06/18 20:36
[2018-06-07] MEDS: MONTELUKAST SODIUM 10 MG TABLET PO SCH (21:15)
--- NOTE | 2018-06-08 01:18 | Consultation Report ---
DATE OF CONSULTATION: 06/07/2018 PULMONARY MEDICINE CONSULT TIME: 1500. REASON FOR CONSULTATION: Hypoxemia associated with diffuse interstitial process. HISTORY OF PRESENT ILLNESS: A 52-year-old white male was admitted by Dr. Koir Hu on to the hospitalist service yesterday with progressive symptoms of dyspnea and hypoxemia. The patient was diagnosed with asthma several years ago and has been treated for that as well as dyslipidemia. He has been evaluated in the past by Dr. Cai and his physician advertising assistant Yaneli Keyes. He states he has been ill since January and his symptoms started with an upper respiratory infection that has not cleared with a nonproductive cough and associated dyspnea with exertion. He has been placed on antibiotics x2 and most recently a prednisone taper that was ineffectual. Because of progressive symptoms of dyspnea, he was brought to the Emergency Room and evaluated by the ER physician. He was seen by Dr. Herve Burns. He has had low grade fevers associated with headaches over the past 4 months and the symptoms have been intermittent but persistent. While his cough is somewhat better, it is still persistent as well and intractable. Following a coughing paroxysm while in the shower in the morning of admission, he had a presyncopal symptomatology. His white count was found to be 31,000 on admission. No hemoptysis or pleuritic pain has been noted. He has a negative smoking history with minimal secondary exposure. 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 No significant travel history noted. The house is heated with wood pallets as well as baseboard heating and there are wall to wall rugs in the bedroom, etc. A cat and dog are present. He did have moldy area in the basement that is not finished and he threw out the cardboard that had gotten wet and had mold growing in it. No significant mold seen on the dry wall or any other areas. The symptoms do not appear to be seasonal. Dr. Cai's records have been sent for. PAST MEDICAL HISTORY: I refer you to current and past record. PHYSICAL EXAMINATION: GENERAL: Reveals a well-developed, well-nourished white male appearing stable at rest in no obvious respiratory distress. VITAL SIGNS: Blood pressure 127/79, pulse 96 and regular, respiratory rate 18, temperature 36.8, O2 sat 95% on 2 liters. SKIN: Without lesion. HEENT: Atraumatic, normocephalic. PERRLA. EOMI. Conjunctivae pink. Sclerae nonicteric. Fundi poorly visualized. NECK: Neck veins are not distended at 45 degrees. No lymphadenopathy in the supra or infraclavicular areas. LUNGS: Some fine crackles at the bases, otherwise distant P and A. CARDIAC EXAM: Sinus tachycardia. I do not appreciate a gallop or murmur. ABDOMEN: Soft, scaphoid. No hepatosplenomegaly. EXTREMITIES: No pedal edema, clubbing or cyanosis. NEUROLOGIC: Intact. No lateralizing signs. LABORATORY DATA: CT scan once again shows diffuse ground-glass appearance both upper and lower lobes with some subcarinal adenopathy and 23 mm subcarinal lymph node. White count on admission 31,000, H and H 14 and 42. Leftward shift is seen. Sed rate 63. CT scan as noted. Blood cultures pending. PT, PTT, INR within normal limits. CHRIS pending. Lyme antibodies pending. EBV virus pending. HIV 1 and 2 negative. Influenza A and B PCR negative. OVERALL ASSESSMENT: A 52-year-old with history of asthma with progressive symptoms since January of dyspnea and hypoxemia associated with diffuse ground-glass attenuation of both lungs and subcarinal lymphadenopathy associated with low-grade fever and leukocytosis. I had a lengthy discussion with the patient. I believe we need to get a definitive answer and to maximize our yield. I have asked Dr. Cj Monsivais/Thoracic surgery to consult on the patient and consider robotic video-assisted thorascopic wedge biopsy tomorrow with removal of the subcarinal lymph node during the thorascopic procedure for more definitive diagnosis. The patient is amenable to proceeding at this point in time and will make patient n.p.o. after midnight. [facility]
[2018-06-08] MEDS: DOXYCYCLINE HYCLATE 100 MG in DEXTROSE 5% 100 ML IV SCH ×2 (02:14→17:24)
--- NOTE | 2018-06-08 02:14 | Consultation Report ---
DATE OF CONSULTATION: 06/07/2018 REASON FOR CONSULTATION: Bilateral pulmonary infiltrates, evaluate for possible biopsy. HISTORY OF PRESENT ILLNESS: Rajinder Arenas is an otherwise healthy 52-year-old male who is a lifetime nonsmoker who really is healthy. He developed some problem with his dehumidifier in his basement, had some wet cardboard and other problems which he removed but had developed some mold. Since that time, the patient has had a cough which is unresponsive to treatment. He has never coughed up anything other than an occasional clear sputum in the mornings. He has not had a febrile episode. He has had headaches and fevers but has had no documented pneumonia or fluid in his chest. He was admitted yesterday. He has a marked leukocytosis and was hypoxic. I reviewed his CT scan and his chest x-rays with Dr. Prieto Brannon. He is currently on doxycycline, but has not improved with inhalers and steroids. PAST MEDICAL HISTORY: 1. Hyperlipidemia. 2. Questionable asthma. 3. Leukocytosis. PAST SURGICAL HISTORY: None. MEDICATIONS: 1. Lipitor. 2. Zyrtec. 3. Ellipta. 4. Ibuprofen. 5. Singulair. ALLERGIES: PENICILLIN CAUSES A RASH. SOCIAL HISTORY: The patient lives with his and 16-year-old son in [facility]. He has never smoked cigarettes. 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 FAMILY MEDICAL HISTORY: Really noncontributory. His son is healthy. He has had no history of anything like this in his first degree relatives. REVIEW OF SYSTEMS: The patient states he has lost about 15 pounds in the last 3 months. He has had fevers with some sweats. He denies hemoptysis. He has really not had a productive cough. He denies nausea or vomiting or diarrhea. He denies palpitations or chest pain. He denies any joint pain or swelling. He has had no skin breakdown or petechia or rashes. He has had no dysuria or pyuria. He denies hematuria, hematemesis and hematochezia. He has had no hemoptysis. He has had no focal deficits. He denies photophobia. He has had headaches, but no seizures. PHYSICAL EXAMINATION: GENERAL: This is a 6 feet 3 inch approximately 215 pound male who is awake, alert and oriented. He is wearing supplemental oxygen. HEENT: Extraocular movements intact. Pupils are equal, round and reactive. Sclerae are anicteric. He has no nasolabial flattening. His tongue is midline. His teeth are in excellent repair. His nasal mucosa is without polyps. He has no oral mucosal lesion to suggest candidiasis. He has no supraclavicular or cervical lymphadenopathy. He has no axillary adenopathy. LUNGS: Clear. I do not really even detect crackles. HEART: He has regular rate and rhythm of his heart. ABDOMEN: Flat, soft, nontender with no evidence of ascites. MUSCULOSKELETAL: He has no joint effusions. EXTREMITIES: He has excellent peripheral pulses. NEUROLOGIC: He is completely intact. ASSESSMENT AND PLAN: 1. Bilateral pulmonary infiltrates with the patient with leukocytosis of a longstanding (over 3 months). Plan is, I going to offer the patient a right thoracoscopy with a wedge resection tomorrow morning on 06/08/2018. I had a long discussion with the patient, his and his 16-year-old son. We are all agreeable. We did discuss other modalities such as a fiberoptic bronchoscopy with cryoprobe biopsy versus transbronchial needle aspiration. Dr. Brannon and I feel this will be a low yield. For this reason, we are going to proceed with a thoracoscopic lung biopsy tomorrow on 06/08/2018.
--- NOTE | 2018-06-08 06:58 | History & Physical Bridge Note ---
Date of Service June 08, 2018 History & Physical Bridge Note I have examined the patient, reviewed the History & Physical and in the interval since the performance of the History & Physical I have noted the following changes of clinical significance: no changes noted
[2018-06-08] MEDS ORDERED: SODIUM CHLORIDE 0.9% PF 50 ML VIAL ONE (07:02)
[2018-06-08] MEDS ORDERED: BUPIVACAINE LIPOSOME 1.3% 266 MG/20 ML VIAL ONE (07:02)
[2018-06-08] MEDS ORDERED: BUPIVACAINE 0.5 % 5 MG/1 ML MPF 30ML VIAL ONE (07:02)
[2018-06-08] MEDS ORDERED: MIDAZOLAM HCL 1 MG/ML 2ML VIAL ONE (07:03)
[2018-06-08] MEDS ORDERED: ONDANSETRON INJ 2 MG/ML 2 ML VIAL ONE (07:03)
[2018-06-08] MEDS ORDERED: LIDOCAINE HCL 2% 2 ML VIAL/AMP(20MG/ML) INFIL ONE (07:03)
[2018-06-08] MEDS ORDERED: NEOSTIGMINE METHYLSULFATE 5 MG/5 ML SYR ONE (07:03)
[2018-06-08] MEDS ORDERED: PROPOFOL IV EMULSION 10 MG/ML 20 ML VIAL IV ONE (07:03)
[2018-06-08] MEDS ORDERED: fentaNYL citrate 100 MCG/2 ML VIAL ONE (07:03)
[2018-06-08] MEDS ORDERED: GLYCOPYRROLATE 0.2 MG/ML VIAL ONE ×2 (07:03→07:47)
[2018-06-08] MEDS ORDERED: DEXAMETHASONE SOD INJ 4 MG/ML VIAL ONE (07:03)
[2018-06-08] MEDS ORDERED: fentaNYL citrate 100 MCG/2 ML VIAL IV PRN (07:08)
[2018-06-08] MEDS ORDERED: ePHEDrine sulfate 50 MG/ML AMP IV PRN (07:08)
[2018-06-08] MEDS ORDERED: ATROPINE SULFATE 0.1 MG/ML 10ML SYR IV PRN (07:08)
[2018-06-08] MEDS ORDERED: HYDROmorphone INJ 1 MG/ML SYRINGE IV PRN (07:08)
[2018-06-08] MEDS ORDERED: PHENYLEPHRINE 100MCG/ML 5ML SYR IV PRN (07:08)
[2018-06-08] MEDS ORDERED: LABETALOL HCL IV 5 MG/ML 20ML IV PRN (07:08)
[2018-06-08] MEDS ORDERED: ONDANSETRON INJ 2 MG/ML 2 ML VIAL IV PRN (07:08)
[2018-06-08] MEDS ORDERED: MEPERIDINE HCL 25 MG/ML CARP IV PRN (07:08)
[2018-06-08] MEDS ORDERED: ALBUTEROL HFA INHALER 8.5 GM ONE ×2 (07:15→07:47)
[2018-06-08] MEDS ORDERED: CLINDAMYCIN PHOS 300 MG/2 ML VIAL ONE (07:38)
[2018-06-08] MEDS ORDERED: LARYING-O-JET KIT (LTA) ONE (07:47)
[2018-06-08] MEDS ORDERED: ROCURONIUM BROMIDE 10 MG/ML 5 ML VIAL ONE (07:47)
--- NOTE | 2018-06-08 08:09 | Post Operative Brief Note ---
Immediate Post Op Note v1 Date of Surgery June 08, 2018 Pre & Post Diagnosis Operation Date: 06/08/18 07:15 Pre and post op Diagnosis: Pulmonary infiltrates unknown etiology Procedure Operation Date: 06/08/18 07:15 Right thoracoscopy with wedge biopsy RUL, RML, RLL Surgeon Cj Monsivais MD, FACS Registered Art Therapist Anmol GILBERT Estimated Blood Loss 5 Findings Consistent with Post-Op Diagnosis
[2018-06-08] MEDS ORDERED: METOCLOPRAMIDE HCL INJ 5 MG/ML 2 ML VIAL IV ONE (08:45)
[2018-06-08] MEDS ORDERED: ALBUT/IPRATROP 3MG/0.5MG NEB 3 ML VIAL NEB STA (08:50)
--- NOTE | 2018-06-08 08:54 | XRay Report ---
XR chest 1V portable CLINICAL HISTORY: lung biopsy COMPARISON STUDY: 06/06/2018 FINDINGS: The heart is mildly enlarged. There are bilateral airspace opacities, likely representing p ulmonary edema. There is a right-sided chest tube. There is a 29 mm right apical pneumothorax. There is a line shadow paralleling the left chest wall, but this is irregular in appearance and is unlikely to represent a pneumothorax.[ IMPRESSION: 1. Normal right lung surgery with placement of a right-sided chest tube. 29 mm right apical pneumotho rax 2. Bilateral airspace opacities, likely representing pulmonary edema. Clinical and radiographic follo w-up is recommended Electronically signed by: Bartolo Styles M.D. 06/08/2018 8:52 AM
--- NOTE | 2018-06-08 09:32 | Anesthesiology Progress Note ---
Date of Service June 08, 2018 Anesthesia Post Procedure Vital Signs Vital Signs: Temp Pulse Pulse Resp BP BP Pulse Ox 06/08/18 09:20 61 15 149/80 H 96 06/08/18 09:10 62 21 151/84 H 95 06/08/18 09:00 63 20 145/80 H 93 06/08/18 08:58 87 18 92 06/08/18 08:50 63 15 132/73 93 06/08/18 08:42 36.5 C 75 19 119/67 93 06/08/18 06:49 37.1 C 57 L 19 116/70 90 06/08/18 06:28 36.4 C L 60 16 134/84 91 06/07/18 23:00 36.2 C L 58 L 20 130/71 94 06/07/18 15:42 36.8 C 110 H 18 127/79 95 Pain Intensity Posterior Medial Head: Pain Intensity: 1 Notes Mental Status: alert / awake / arousable Patient Amnestic to Procedure: Yes Nausea / Vomiting: adequately controlled Pain: adequately controlled Airway Patency, RR, SpO2: see Notes below BP & HR: stable & adequate Hydration State: stable & adequate Anesthetic Complications: no major complications apparent and Pt Satisfied with anesthetic care Notes: The patient's preop SpO2 was 90 on room air. The patient is awake and stable. He was given a Duoneb in PACU and SpO2 is in the mid 90s on nasal canula oxygen. He will have continous pulse oximetry on the floor.
--- NOTE | 2018-06-08 09:59 | Operative Report ---
DATE OF OPERATION: 06/08/2018 PREOPERATIVE DIAGNOSIS: Pulmonary infiltrates, unknown etiology with hypoxia. POSTOPERATIVE DIAGNOSIS: Pulmonary infiltrates, unknown etiology with hypoxia. PROCEDURE: Right thoracoscopy with wedge biopsy, right upper lobe, right middle lobe, right lower lobe. SURGEON: Cj Monsivais MD STONE SPLITTER: VLADIMIR Camacho (Mr. Gonzalez was present for the entire case). ANESTHESIA: General anesthesia with single lumen intubation. INDICATIONS FOR PROCEDURE AND FINDINGS: A 52-year-old male who is actually healthy except for some mild hyperlipidemia, who developed a cough about more than 3 months ago in January of 2018 and this cough never resolved. The patient has had headaches with fevers and although his cough is not really productive. After a long talk, we elected to proceed with a biopsy. He had some diffuse pulmonary infiltrates. On 06/08/2018, I brought the patient to the operating room, did an uncomplicated right thoracoscopy with a wedge biopsy of the right middle lobe, right lower lobe, right upper lobe. Frozen section showed some inflammatory changes, but no evidence of pulmonary fibrosis. Appropriate cultures were sent. He tolerated it well. We did do an intercostal block. DESCRIPTION OF PROCEDURE: The patient was brought to operating room and laid in supine position. General anesthesia induced. Endotracheal intubation was performed with single lumen tube. The patient was turned in left lateral decubitus position, after prepped and draped in usual sterile fashion and appropriate timeout was called, prophylactic antibiotics given. A 5 mm port was placed posterior to the scapula and another 5 mm port was placed anterior. Carbon dioxide was insufflated. There were no adhesions and in fact the fissures were well developed and the lungs themselves looked nice and pink. I did not see any obvious abnormalities. It should be noted on CT scan, these were diffuse changes. I did a wedge biopsy of the upper lobe with an Endo-ISH stapler, the middle lobe and the lower lobe. Frozen section of the lower lobe was sent off. I went over these with Dr. Venice Brooks. There were some mild inflammatory changes, but no evidence of pulmonary fibrosis or malignancy. A 266 mg of Exparel were mixed with 30 mL of 0.5% bupivacaine and 250 mL of normal saline. This was injected into each of the [address] did place a 12 mm incision just anterior to mid axillary line down the lower chest. Through these, we were able to do these biopsies by placing the stapler in the lower most port. The Exparel was injected in each of the port sites prior to making incision and we used to do an intercostal block from the 2nd to 11th rib under thoracoscopic guidance. We really had no blood loss. A chest tube was placed to the lower most incision directed towards the apex and held in place with heavy silk suture. A 4-0 Monocryl used in running subcuticular fashion to approximate the wound edges. The patient had no air leak, was extubated in the room and tolerated it well. I attest to the content of the Intraoperative Record and any orders documented therein. Any exception s are noted below.
[2018-06-08] MEDS ORDERED: MoRPHine SULFATE 2 MG/ML CARP IV PRN (10:22)
[2018-06-08 10:44] LABS: Basophils # (auto) 0.03 K/uL (0-0.2); Basophils % (auto) 0.2 %; Eosinophils # (auto) 0.04 K/uL (0-0.5); Eosinophils % (auto) 0.2 %; Hematocrit (blood only) 42.1 % (42-52); Hemoglobin 14.1 g/dL (14.0-18.0); Immature Granulocytes # (auto) 0.05 K/uL (0.00-0.02); Immature Granulocytes % (auto) 0.3 %; Lymphocytes # (auto) 0.43 K/uL (1.2-3.4); Lymphocytes % (auto) 2.4 %; Mean Corpuscular Hgb Conc 33.5 g/dL (32-36); Mean Corpuscular Volume 91.9 fL (80-100); Mean Platelet Volume 9.7 fL (7.4-10.4); Monocytes # (auto) 0.16 K/uL (0.11-0.59); Monocytes % (auto) 0.9 %; Neutrophils # (auto) 16.94 K/uL (1.4-6.5); Platelet Count 310 K/uL (130-400); RDW Coefficient of Variation 13.4 % (11.5-14.5); RDW Standard Deviation 44.9 fL (36.4-46.3); Red Blood Count 4.58 M/uL (4.7-6.1); White Blood Count 17.65 K/uL (4.8-10.8)
[2018-06-08 11:23] LABS: BUN Creatinine Ratio 13.2 (10-20); Calcium 8.8 mg/dl (8.5-10.1); Creatinine Clr Calc Pharmacy 75.3 ml/min; Est GFR (African American) 69.1; Est GFR (Non-African American) 59.6; Potassium 4.2 mmol/L (3.5-5.1)
[2018-06-08] MEDS: ACETAMINOPHEN 1,000 MG/100 ML VIAL IV SCH ×2 (11:57→20:26)
[2018-06-08] MEDS: DOCUSATE SODIUM 100 MG CAP PO SCH ×2 (11:57→20:38)
[2018-06-08] MEDS: METOCLOPRAMIDE HCL INJ 5 MG/ML 2 ML VIAL IV SCH ×2 (11:58→18:50)
[2018-06-08] MEDS: D5W AND 1/2NSS 1,000 ML IV SCH (12:05)
[2018-06-08] MEDS: FLUTICASONE HFA 220 MCG INHALER INH SCH (12:54)
[2018-06-08] MEDS: CETIRIZINE HCL 10 MG TABLET PO SCH (12:55)
[2018-06-08] MEDS: ENOXAPARIN INJ 40 MG/0.4 ML SYR SQ SCH (12:55)
[2018-06-08 13:56] LABS: Anti Nuclear Antibody Screen NEGATIVE (NEGATIVE)
[2018-06-08] MEDS: ATORVASTATIN 10 MG TAB PO SCH (15:17)
--- NOTE | 2018-06-08 15:52 | Family Medicine Progress Note ---
Date of Service June 08, 2018 Assessment & Plan (1) Hypoxia: Pt is a 52yo with PMHx of obstructive PFT results who presents with leukocytosis, hypoxia and URI symptoms of approximately 3 months duration. Hypoxia with URI symptoms and leukocytosis. -s/p R thorascopy with wedge biopsy of RUL, RML and RLL today. -Results and cultures, gram stains, smears pending. -CT shows ground glass opacifications and DDx is broad (atypical pneumonia, interstitial pneumonia, hypersensitivity pneumonia) -ESR, CRP also elevated. CHRIS Negative. -EBV IgG Ab-POSITIVE, EBV Early antigen POSITIVE. Appreciate pulm recs. -cryptococcal antigen negative. -Lyme, HIV, flu, mono negative. -Legionella, Mycoplasma, Aspergillosis, TB results PENDING -peripheral smear shows reactive leukocytosis. -s/p 2 azithromycin courses since January -Continue doxycycline currently, MRSA nasal swab NEGATIVE. -continue O2 supplementation as needed. Asthma -continue home fluticasone inhaler, cetirizine and Singulair Hyperlipidemia -continue home lipitor Code: FULL CODE DVT Proph: SCDs Supervising Physician Co-Signing Physician Notes Resident Physician Supervision Note: I independently interviewed and examined the patient and verified the orantes history and physical, reviewed labs and image studies, discussed the case with the resident Dr. Marquez and agree with the findings and care plan. Subjective Saw pt after bronchoscopy procedure this AM. states he is doing well, and just feels like the "gunk" in his chest now wants to come up when he coughs. Has tried eating crackers post procedure and doing well. Denies anorexia, fevers, chills, night sweats. Denies chest pain currently. Review of Systems All systems reviewed & are unremarkable except as noted in HPI & below Physical Exam Vital Signs (Past 24 Hours): Last Vital Signs Temp 36.9 C 06/08/18 15: Pulse 70 06/08/18 15:09 Resp 17 06/08/18 15:09 BP 129/80 06/08/18 15:09 Pulse Ox 90 06/08/18 15:09 General: Alert, oriented, eating in bed. HEENT: NC/AT, PERRLA, EOMI, oropharynx moist. NC in nares. CV: RRR, Normal s1, s2. No murmurs appreciated Resp: Fine crackles at bases bilaterally. Abdomen: Soft, nontender, nondistended. No guarding. No organomegaly appreciated. Extremities: No edema. Results & Data Laboratory Results Laboratory Results - last 24 hr 06/07/18 06/07/18 06/08/18 06:01 17:31 10:34 WBC 17.65 H RBC 4.58 L Hgb 14.1 Hct 42.1 MCV 91.9 MCH 30.8 MCHC 33.5 RDW Std Deviation 44.9 RDW Coeff of Jose Roberto 13.4 Plt Count 310 MPV 9.7 Immature Gran % (Auto) 0.3 Neut % (Auto) 96.0 Lymph % (Auto) 2.4 Shackelford % (Auto) 0.9 Eos % (Auto) 0.2 Baso % (Auto) 0.2 Immature Gran # (Auto) 0.05 H Neut # (Auto) 16.94 H Lymph # (Auto) 0.43 L Shackelford # (Auto) 0.16 Eos # (Auto) 0.04 Baso # (Auto) 0.03 Sodium Potassium Chloride Carbon Dioxide Anion Gap BUN Creatinine Est Cr Clr Drug Dosing Est GFR ( Amer) Est GFR (Non-Af Amer) BUN/Creatinine Ratio Glucose Calcium IgG 1630.0 H IgA 259.0 IgM 218.0 CHRIS Screen NEGATIVE 06/08/18 10:34 WBC RBC Hgb Hct MCV MCH MCHC RDW Std Deviation RDW Coeff of Jose Roberto Plt Count MPV Immature Gran % (Auto) Neut % (Auto) Lymph % (Auto) Shackelford % (Auto) Eos % (Auto) Baso % (Auto) Immature Gran # (Auto) Neut # (Auto) Lymph # (Auto) Shackelford # (Auto) Eos # (Auto) Baso # (Auto) Sodium 139 Potassium 4.2 D Chloride 108 H Carbon Dioxide 26 Anion Gap 5.0 BUN 18 Creatinine 1.34 Est Cr Clr Drug Dosing 75.3 Est GFR ( Amer) 69.1 Est GFR (Non-Af Amer) 59.6 BUN/Creatinine Ratio 13.2 Glucose 126 H Calcium 8.8 IgG IgA IgM CHRIS Screen Medications Administered Home Medications Kumbucha 1 dose PO DAILY 06/06/18 [History Confirmed 06/06/18] atorvastatin [Lipitor] 10 mg PO DAILY 06/06/18 [History Confirmed 06/06/18] cetirizine [Zyrtec] 10 mg PO DAILY 06/06/18 [History Confirmed 06/06/18] fluticasone furoate [Arnuity Ellipta] 1 puff INHALATION DAILY 06/06/18 [History Confirmed 06/06/18] ibuprofen 400 mg PO TID PRN 06/06/18 [History Confirmed 06/06/18] montelukast [Singulair] 10 mg PO DAILY 06/06/18 [History Confirmed 06/06/18] multivitamin 1 tab PO DAILY 06/06/18 [History Confirmed 06/06/18] Active Medications Al Hydrox/Mg Hydrox/Simethicone (Maalox) 30 ml PO Q6H PRN PRN Reason: Dyspepsia Stop: 07/07/18 00:44 Atorvastatin Calcium (Lipitor) 10 mg PO TODAY@1500 [facility] Stop: 07/07/18 14:59 Last Admin: 06/08/18 15:17 Dose: 10 mg Documented by: Cetirizine HCl (Zyrtec) 10 mg PO DAILY [facility] Stop: 07/07/18 08:59 Last Admin: 06/08/18 12:55 Dose: 10 mg Documented by: Docusate Sodium (Colace) 100 mg PO BID [facility] Stop: 07/08/18 10:44 Last Admin: 06/08/18 11:57 Dose: 100 mg Documented by: Enoxaparin Sodium (Lovenox) 40 mg SQ QAM [facility] Stop: 07/08/18 10:59 Last Admin: 06/08/18 12:55 Dose: 40 mg Documented by: Fluticasone Propionate (Flovent Hfa 220mcg) 1 puffs INH DAILY [facility] Stop: 07/08/18 08:59 Last Admin: 06/08/18 12:54 Dose: 1 puffs Documented by: Doxycycline Hyclate 100 mg/ (Dextrose) 110 mls @ 50 mls/hr IV Q12H [facility] Stop: 06/14/18 01:59 Last Infusion: 06/08/18 04:20 Dose: Infused Documented by: Dextrose/Sodium Chloride (D5w And 1/2nss) 1,000 mls @ 100 mls/hr IV .Q10H [facility] Stop: 07/08/18 10:44 Last Admin: 06/08/18 12:05 Dose: 100 mls/hr Documented by: Acetaminophen (Ofirmev) 1,000 mg in 100 mls @ 400 mls/hr IV Q8H [facility] Stop: 07/08/18 11:59 Last Infusion: 06/08/18 12:12 Dose: Infused Documented by: Ioversol (Optiray 320 100ml) 118 ml IV ONCE PRN PRN Reason: Interaction Checking Stop: 06/10/18 21:48 Last Admin: 06/06/18 21:50 Dose: 118 ml Documented by: Magnesium Hydroxide (Milk Of Magnesia) 30 ml PO Q6H PRN PRN Reason: Constipation Stop: 07/07/18 00:44 Metoclopramide HCl (Reglan) 10 mg IV Q8H [facility] Stop: 06/09/18 03:01 Last Admin: 06/08/18 11:58 Dose: 10 mg Documented by: Montelukast Sodium (Singulair) 10 mg PO Q24H [facility] Stop: 07/07/18 21:59 Last Admin: 06/07/18 21:15 Dose: 10 mg Documented by: Morphine Sulfate (Morphine Sulfate) 1 - 2 mg IV Q1H PRN PRN Reason: Pain Stop: 06/22/18 10:21 Ondansetron HCl (Zofran) 4 mg IV Q6H PRN PRN Reason: Nausea Stop: 07/07/18 00:44 Oxycodone HCl (Roxicodone Immediate Rel) 5 mg PO Q6H PRN PRN Reason: Pain Stop: 06/22/18 10:21 Polyethylene Glycol (Miralax Powder Packet) 17 gm PO DAILY PRN PRN Reason: Constipation Stop: 07/07/18 00:44
[2018-06-08] MEDS: FUROSEMIDE 20 MG TAB PO SCH (17:27)
[2018-06-08] MEDS: OXYCODONE HCL IR 5 MG TAB (IMMEDIATE RELEASE) PO PRN (17:34)
[2018-06-08] MEDS: methylPREDNISolone 40 MG in SYRINGE 0 ML IV SCH (20:33)
--- NOTE | 2018-06-08 21:07 | Progress Note ---
DATE: 06/08/2018 PULMONARY MEDICINE PROGRESS NOTE Chart reviewed and the patient examined. SUBJECTIVE: The patient was seen post VATS biopsy today with Dr. Monsivais. He is sitting upright in a chair with a chest tube in place without evidence for air leak with significant drainage. He has got some mild chest discomfort but appears reasonably comfortable. OBJECTIVE: VITAL SIGNS: Blood pressure 129/80, pulse 70 and regular, respiratory rate 17, temperature 36.9, O2 sat 90% on 2 liters. SKIN: Warm and dry. HEENT: Atraumatic, normocephalic, PERRLA, EOMI. Conjunctivae pale. Sclerae nonicteric. Fundi benign. Tympanic membranes are within normal limits. Pharyngeal exam intact. LUNGS: Some fine crackles, otherwise distant P and A. Decreased breath sounds at the right base. CARDIAC: Regular rate and rhythm. No murmurs or gallops. ABDOMEN: Soft, scaphoid. No evidence for hepatosplenomegaly. EXTREMITIES: No pedal edema, clubbing or cyanosis. NEUROLOGIC: Intact. No lateralizing signs. LABORATORY DATA: White count today 17,000, down from 31,000 on admission, lymphocytosis noted. Sed rate of 63. Total IgG level is mildly elevated at 1630 mg/dL. IgE is pending. CD4/CD8 ratio is pending. Lyme antibodies pending. HIV serology negative. Influenza A and B PCR negative. Mycoplasma and legionella antibodies pending as are the Aspergillus antibodies and antigen. QuantiFERON Gold study is pending as well. IMAGING DATA: Chest x-ray today post biopsy shows a 29-mm right apical pneumothorax, bilateral airspace opacities, possibly representing pulmonary edema. ASSESSMENT AND PLAN: A 52-year-old with diffuse ground-glass opacities presents with leukocytosis, hypoxemia and symptoms since January of 2018. Await biopsy results and serology studies are currently pending. MTDD
[2018-06-08] MEDS: MONTELUKAST SODIUM 10 MG TABLET PO SCH (21:59)
[2018-06-09] MEDS: D5W AND 1/2NSS 1,000 ML IV SCH ×3 (00:23→20:12)
[2018-06-09] MEDS: OXYCODONE HCL IR 5 MG TAB (IMMEDIATE RELEASE) PO PRN ×2 (01:01→07:30)
[2018-06-09] MEDS: DOXYCYCLINE HYCLATE 100 MG in DEXTROSE 5% 100 ML IV SCH ×2 (01:01→14:10)
[2018-06-09] MEDS: METOCLOPRAMIDE HCL INJ 5 MG/ML 2 ML VIAL IV SCH (04:10)
[2018-06-09] MEDS: ACETAMINOPHEN 1,000 MG/100 ML VIAL IV SCH ×3 (04:10→19:47)
[2018-06-09 07:07] LABS: Basophils # (auto) 0.01 K/uL (0-0.2); Basophils % (auto) 0.1 %; Hematocrit (blood only) 41.6 % (42-52); Hemoglobin 14.1 g/dL (14.0-18.0); Immature Granulocytes # (auto) 0.03 K/uL (0.00-0.02); Immature Granulocytes % (auto) 0.2 %; Lymphocytes # (auto) 0.95 K/uL (1.2-3.4); Lymphocytes % (auto) 5.5 %; Mean Corpuscular Hgb Conc 33.9 g/dL (32-36); Mean Corpuscular Volume 91.4 fL (80-100); Mean Platelet Volume 9.8 fL (7.4-10.4); Monocytes # (auto) 1.14 K/uL (0.11-0.59); Monocytes % (auto) 6.7 %; Neutrophils # (auto) 15.01 K/uL (1.4-6.5); Neutrophils % (auto) 87.5 %; Platelet Count 378 K/uL (130-400); RDW Coefficient of Variation 13.4 % (11.5-14.5); RDW Standard Deviation 44.9 fL (36.4-46.3); Red Blood Count 4.55 M/uL (4.7-6.1); White Blood Count 17.14 K/uL (4.8-10.8)
--- NOTE | 2018-06-09 07:16 | XRay Report ---
SINGLE VIEW CHEST CLINICAL HISTORY: Status post lung biopsy. FINDINGS: An AP, portable, upright chest radiograph is compared to study dated 06/08/2018 and correlat ed with chest CT dated 06/06/2018. The examination is degraded by portable technique and patient rotat ion. The heart is enlarged. Pulmonary vascular congestion end interstitial edema have improved. A ri ght-sided chest tube is unchanged in position. There is a small residual right apical pneumothorax. T his has decreased in size from yesterday. There are small pleural effusions with bibasilar consolidat ion. The bony thorax is grossly intact. IMPRESSION: 1. Cardiomegaly. Mild pulmonary vascular congestion persists. Interstitial edema has significantly im proved from yesterday. 2. A right-sided chest tube is unchanged in position. There is a small residual right apical pneumoth orax which has decreased in size from yesterday. 3. Small pleural effusions with bibasilar consolidation. This likely represents atelectasis. Clinical correlation will be required. Electronically signed by: Herve Lema M.D. 06/09/2018 7:14 AM
[2018-06-09 07:35] LABS: BUN Creatinine Ratio 15.2 (10-20); Creatinine Clr Calc Pharmacy 86.3 ml/min; Est GFR (African American) 81.4; Est GFR (Non-African American) 70.3; Potassium 4.5 mmol/L (3.5-5.1)
--- NOTE | 2018-06-09 08:00 | XRay Report ---
SINGLE VIEW CHEST CLINICAL HISTORY: Status post chest tube removal. FINDINGS: An AP, portable, upright chest radiograph is compared to study performed earlier the same d ay 06/09/2018 and correlated with chest CT dated 06/06/2018. The examination is degraded by portable te chnique and patient rotation. The heart is enlarged. Mild pulmonary vascular congestion persists. A right-sided chest tube has been removed. There is a small residual right apical pneumothorax. This watkins s unchanged from earlier today. There are small pleural effusions with bibasilar consolidation. The b azam thorax is grossly intact. IMPRESSION: 1. Cardiomegaly. Mild pulmonary vascular congestion persists. 2. A right-sided chest tube has been removed. A trace residual right apical pneumothorax is unchanged . 3. Small pleural effusions with bibasilar consolidation. This likely represents atelectasis and clini alvin correlation will be required. Electronically signed by: Herve Lema M.D. 06/09/2018 7:58 AM
--- NOTE | 2018-06-09 09:10 | Surgery Progress Note ---
Date of Service June 09, 2018 Assessment & Plan (1) Hypoxia: -pt. is s/p RVATS with lung biopsies -path is pending -cultures reviewed and (-) for growth this far; no organisms noted on gram stain -chest tube with no air leak, so was removed this am -post-pull CXR noted to have trace residual pneumothorax -pt. ok for d/c from surgery standpoint -instructions for wound care and follow-up given to pt. -discussed with primary service Subjective Pt. notes pain well controlled. No fevers, shakes, chills. He is tolerating diet and ambulating in hallway. He is voiding without difficulty. Physical Exam Vital Signs (Past 24 Hours): Last Vital Signs Temp 36.6 C 06/09/18 07:21 Pulse 50 L 06/09/18 07:21 Resp 16 06/09/18 07:21 BP 132/78 06/09/18 07:21 Pulse Ox 93 06/09/18 07:21 Constitutional: WD/WN, vitals as above well nourished and + acute distress Respiratory: no respiratory distress and no labored breathing BS with slight decrease at right base Musculoskeletal: no calf tenderness
[2018-06-09] MEDS: methylPREDNISolone 40 MG in SYRINGE 0 ML IV SCH ×2 (09:43→20:18)
[2018-06-09] MEDS: DOCUSATE SODIUM 100 MG CAP PO SCH ×2 (09:43→20:18)
[2018-06-09] MEDS: FUROSEMIDE 20 MG TAB PO SCH (09:43)
[2018-06-09] MEDS: CETIRIZINE HCL 10 MG TABLET PO SCH (09:43)
[2018-06-09] MEDS: ENOXAPARIN INJ 40 MG/0.4 ML SYR SQ SCH (09:44)
[2018-06-09] MEDS: POTASSIUM CHLORIDE 20 MEQ TABCR PO SCH (09:44)
[2018-06-09] MEDS: FLUTICASONE HFA 220 MCG INHALER INH SCH (09:45)
--- NOTE | 2018-06-09 10:07 | Family Medicine Progress Note ---
Date of Service June 09, 2018 Assessment & Plan (1) Shortness of breath: 52 year old man with PMHx of obstructive PFT results who presents with leukocytosis, hypoxia and URI symptoms of approximately 3 months duration. Hypoxia with URI symptoms and leukocytosis. - Comfortable and oxygenating well on room air. -s/p R thorascopy with wedge biopsy of RUL, RML and RLL yesterday - Gram stain and fungle smear showing no bacteria or fungal hyphae or spores - Biopsy Results and cultures pending -CT shows ground glass opacifications and DDx is broad (atypical pneumonia, interstitial pneumonia, hypersensitivity pneumonia) -ESR, CRP also elevated. CHRIS Negative. -EBV IgG Ab-POSITIVE, EBV Early antigen POSITIVE. Appreciate pulm recs. -cryptococcal antigen negative. -Lyme, HIV, flu, mono negative. -Legionella, Mycoplasma, Aspergillosis, TB results PENDING -peripheral smear shows reactive leukocytosis. -s/p 2 azithromycin courses since January -Continue doxycycline currently, MRSA nasal swab NEGATIVE. -continue O2 supplementation as needed. -concern of fluid overload. Received dose of lasix with improvement. Echo ordered. Follow. - Schedule lasix added. continue. Asthma -continue home fluticasone inhaler, cetirizine and Singulair Hyperlipidemia -continue home lipitor Code: FULL CODE DVT Proph: SCDs Supervising Physician Co-Signing Physician Notes Resident Physician Supervision Note: I independently interviewed and examined the patient and verified the orantes history and physical, reviewed labs and image studies, discussed the case with the resident Dr. York and agree with the findings and care plan. Subjective Patient feeling much better currently, he is breathing easier and is in no discomfort. He is eating breakfast breathing room air. We discussed preliminary results and that we are still waiting for path. He expressed his understanding. Chest tube removed by thoracic surgery this morning. Physical Exam Vital Signs (Past 24 Hours): Last Vital Signs Temp 36.6 C 06/09/18 07:21 Pulse 50 L 06/09/18 07:21 Resp 16 06/09/18 07:21 BP 132/78 06/09/18 07:21 Pulse Ox 93 06/09/18 07:21 Constitutional: WD/WN, vitals as above Eyes: PERRL, conjunctivae normal, anicteric sclerae ENMT: external ear and nose normal, oropharynx normal Neck: trachea midline, no thyromegaly Respiratory: normal respiratory effort and able to speak in complete sentences; no respiratory distress and no cough Auscultation: + crackles (very faint bilateral bases) Cardiovascular: RRR, no murmur, no edema Gastrointestinal (Abdomen): normal bowel sounds, soft, nontender, no hepatosplenomegaly Skin: no rashes, warm and dry Psychiatric: A+Ox3, euthymic affect Resident Activity Tracking Resident Involvement: Resident Care Provided Care Provided: Adult Hospital Medicine
--- NOTE | 2018-06-09 10:50 | Progress Note ---
DATE: 06/09/2018 Chart reviewed, patient examined. SUBJECTIVE: The patient has chest tube removed this morning with no significant issues, minimal chest discomfort noted. He does notice that when he goes to the bathroom and goes back to bed, he is "winded." He has minimal cough and no sputum production, certainly no hemoptysis. He is afebrile. PHYSICAL EXAMINATION: VITAL SIGNS: Current temperature 36, blood pressure 132/78, pulse 50 and regular, respiratory rate 16, temperature 36.6, O2 sat 93% on room air. SKIN: Warm and dry. HEENT: Atraumatic, normocephalic. PERRLA. LUNGS: Some fine crackles, otherwise distant P and A. CARDIAC: Regular rhythm. I do not appreciate any gallop. ABDOMEN: Soft, scaphoid. No evidence of hepatosplenomegaly. EXTREMITIES: No pedal edema, clubbing or cyanosis. NEUROLOGIC: Intact. No lateralizing signs. Path is pending. Final path should be out on Monday. His white count has come down to 17,000 despite being on steroids, was 31,000 on admission. H and H is stable. He does not have exhibiting significant peripheral eosinophilia. Chest x-ray post removal of the chest tube suggest mild cardiomegaly, perhaps what was seen is mild pulmonary vascular congestion. Small trace right apical pneumothorax post chest tube removal seen. Small pleural effusions with bibasilar consolidation, possibly representing atelectasis. EKG on admission shows sinus bradycardia, no acute changes. Overall cultures to date have been negative. IgG was elevated at 1630, probably reactive to current process, not felt to be significant. CHRIS is negative. Most other serologies appear to be pending. ASSESSMENT AND PLAN: A 52-year-old with diffuse ground-glass infiltrates, possibly representing pulmonary edema and would like to obtain a 2D echocardiogram today and would continue to diurese the patient and maintain on current regimen. Would encourage ambulation in the hallway with a 6-minute ambulation study on room air to be performed.
--- NOTE | 2018-06-09 11:44 | Progress Note ---
DATE: 06/09/2018 ADDENDUM TO PULMONARY MEDICINE PROGRESS NOTE Review of records from Dr. Cai and from allergy and immunology at [facility] and . Yaneli Keyes/ physician lens assistant suggest he was seen last on 05/30/2018. His PFTs were essentially normal on 03/08/2011 in the past with an FEV1/FVC ratio of 74%. FEV1/FVC ratio was 68% in 03/2009. Allergy skin testing and RAST testing to mulberry, mixed tree pollens, Lisbet grass, Logan, ragweed and mix weed pollens were positive and it was suggested that he has seasonal allergic rhinitis with cough variant asthma. They note that he has been ill since . They were concerned about uncontrolled asthma and had him continue his Singulair and added Arnuity Ellipta 100 mcg 1 puff daily along with his rescue medication. He was to avoid fresh apples because of the pollen food allergy syndrome. Review of outpatient labs on 06/06/2018 shows negative IgM and IgG antibodies for Lyme disease. Deepak-Vital virus capsid IgG was greater than 750 units/mL with Deepak-Vital VCA IgM less than 36 units/mL, Deepak-Vital nuclear antigen/antibody less than 18 units/mL. MTDD
[2018-06-09] MEDS: ATORVASTATIN 10 MG TAB PO SCH (14:10)
[2018-06-09] MEDS: FUROSEMIDE 40 MG TAB PO SCH (17:12)
[2018-06-09] MEDS: MONTELUKAST SODIUM 10 MG TABLET PO SCH (21:53)
[2018-06-10] MEDS: DOXYCYCLINE HYCLATE 100 MG in DEXTROSE 5% 100 ML IV SCH (01:59)
[2018-06-10] MEDS: D5W AND 1/2NSS 1,000 ML IV SCH (03:58)
[2018-06-10] MEDS: ACETAMINOPHEN 1,000 MG/100 ML VIAL IV SCH (03:58)
[2018-06-10 06:21] LABS: Basophils # (auto) 0.01 K/uL (0-0.2); Basophils % (auto) 0.1 %; Hematocrit (blood only) 39.2 % (42-52); Hemoglobin 13.1 g/dL (14.0-18.0); Immature Granulocytes # (auto) 0.01 K/uL (0.00-0.02); Immature Granulocytes % (auto) 0.1 %; Lymphocytes # (auto) 1.05 K/uL (1.2-3.4); Lymphocytes % (auto) 7.7 %; Mean Corpuscular Hgb Conc 33.4 g/dL (32-36); Mean Corpuscular Volume 91.2 fL (80-100); Monocytes # (auto) 1.05 K/uL (0.11-0.59); Monocytes % (auto) 7.7 %; Neutrophils # (auto) 11.44 K/uL (1.4-6.5); Neutrophils % (auto) 84.4 %; Platelet Count 365 K/uL (130-400); RDW Coefficient of Variation 13.6 % (11.5-14.5); RDW Standard Deviation 44.7 fL (36.4-46.3); White Blood Count 13.56 K/uL (4.8-10.8)
[2018-06-10 06:50] LABS: BUN Creatinine Ratio 18.8 (10-20); Creatinine Clr Calc Pharmacy 94.3 ml/min; Est GFR (African American) 90.7; Est GFR (Non-African American) 78.3; Potassium 4.7 mmol/L (3.5-5.1)
--- NOTE | 2018-06-10 07:52 | Surgery Progress Note ---
Date of Service June 10, 2018 Assessment & Plan (1) Hypoxia: -pt. is s/p RVATS with lung biopsies -path is pending -cultures reviewed and (-) for growth this far; no organisms noted on gram stain -chest tube was removed this am -post-pull CXR noted to have trace residual pneumothorax -pt. ok for d/c from surgery standpoint -instructions for wound care and follow-up given to pt. -discussed with primary service on 06/10/18 Subjective Pt. notes his breathing is good and he feels much more comfortable since his chest tube was removed. Physical Exam Vital Signs (Past 24 Hours): Last Vital Signs Temp 36.5 C 06/10/18 07:32 Pulse 52 L 06/10/18 07:32 Resp 16 06/10/18 07:32 BP 132/84 06/10/18 07:32 Pulse Ox 94 06/10/18 07:32 Constitutional: WD/WN, vitals as above well nourished and + acute distress Respiratory: normal respiratory effort; no respiratory distress and no labored breathing
--- NOTE | 2018-06-10 07:55 | Cardiology Consultation ---
Date of Consultation June 10, 2018 Assessment & Plan (1) Shortness of breath: In my opinion his shortness of breath is very unlikely to be cardiac. It has been present January, it is associated with a lot of other findings such as headache, fever, cough and there seems to be very little cardiac involvement. His cardiac workup has included a recent stress echo where the test was negative at a high workload and a high heart rate. Interestingly he actually had a very good exercise response despite his complaints of dyspnea on exertion, however in the past he has been active perhaps this represents a decrement in his exercise ability. He was started on Lasix 2 days ago and he tells me that he feels better and his weight is down significantly. Perhaps he retained a little bit of fluid this admission (his recent weights do show a several kilogram increased but he tells me that he has been losing weight 15 pounds since this started) so I'm not sure this represents fluid although it is possible. If he feels better with a diuretic there is probably little harm in using a mild diuretic (such as hydrochlorothiazide) but I do not think this explains his underlying etiology. I will review the echocardiogram today but what ever we find it would not keep him in the hospital. History of Present Illness Reason for Consultation: Dyspnea on exertion Attending Physician: Rachel Champagne MD History of Present Illness This is a very pleasant 52-year-old gentleman who present by his history) initially developed symptoms of cough, dyspnea on exertion, headache fever January 2018. He tells me he is also lost about 15 pounds in weight since that time, primarily due to lack of appetite by his description. He was treated initially with antibiotics which helped somewhat but the cough and the dyspnea on exertion remain. He has had an extensive workup which has included multiple pulmonary tests including recently a lung biopsy (results pending) as well as a cardiac workup including a stress test done May 21, 2018. This test was negative for ischemia at 93% of his maximal predicted heart rate, his resting echo at that time showed normal left ventricular size and function with mild left ventricular hypertrophy very mild diastolic dysfunction. He actually had a very good exercise response, exercising for 10 minutes on the Harpal protocol achieving 13 METs. Despite treatment for his lung disease he has remained short of breath. Of note his BNP was normal on June 07, 2018. 2 days ago diuretic was initiated at 20 mg twice a day, that was 40 mg twice a day yesterday. This morning he tells me that he thinks he feels a little bit better, he is not very specific but he feels that his breathing is easier now than it had been. He has been relatively inactive of course. Allergies Allergy/AdvReac Type Severity Reaction Status Date / Time bee venom protein (honey bee) Allergy Severe Anaphylaxis Verified 06/07/18 01:13 Penicillins Allergy Intermediate RASH Unverified 06/06/18 22:41 Home Medications Home Medications Medication Instructions Recorded Confirmed Type Kumbucha 1 dose PO DAILY 06/06/18 06/06/18 History atorvastatin [Lipitor] 10 mg PO DAILY 06/06/18 06/06/18 History cetirizine [Zyrtec] 10 mg PO DAILY 06/06/18 06/06/18 History fluticasone furoate [Arnuity 1 puff INHALATION DAILY 06/06/18 06/06/18 History Ellipta] ibuprofen 400 mg PO TID PRN 06/06/18 06/06/18 History montelukast [Singulair] 10 mg PO DAILY 06/06/18 06/06/18 History multivitamin 1 tab PO DAILY 06/06/18 06/06/18 History Patient History Medical History Asthma (Chronic) Hyperlipidemia Family history non-contributory Surgical History No pertinent past surgical history Family History Other Family history non-contributory Social History Preferred Language: Senegalese Communication Ability: Effective Beliefs That Will Affect Care: None Current Living Situation: Family Other Information That Helps Us Care for You: No Feels Safe at Home: Yes Safety Concerns: Feels Safe At This Time Smoking Status: Never smoker Hx Alcohol Use: Yes Hx Substance Use: No Review of Systems Negative for lightheadedness, dizziness, palpitations, presyncope or syncope. Dyspnea on exertion as described but no exertional chest pain. No orthopnea or PND or peripheral edema. No GI complaints, no bleeding. No neurologic complaints such as TIA or stroke symptoms. Other systems negative. Physical Exam Vital Signs (Past 24 Hours): Last Vital Signs Temp 36.5 C 06/10/18 07:32 Pulse 52 L 06/10/18 07:32 Resp 16 06/10/18 07:32 BP 132/84 06/10/18 07:32 Pulse Ox 94 06/10/18 07:32 Physical Exam: Constitutional: Alert, cooperative and in no distress. HEENT: Unremarkable Neck: No jugular venous distention, carotid pulses are normal and equal bilaterally without bruits. Pulmonary: Clear to auscultation bilaterally but his breath sounds seem diminished throughout. Cardiac: Regular rhythm with no murmur, gallop or rub. Abdomen: Soft, nontender with normal bowel sounds. Extremities: No edema. Distal pulses intact. Neurologic: No focal findings. Gait is steady. Skin: No rash, ecchymoses or petechiae. Results & Data Diagnostic Findings His electrocardiogram on June 06, 2018 shows sinus bradycardia but no other abnormalities. An echocardiogram was done yesterday and is pending. A chest x-ray done June 06, 2018 was read by radiology as normal and does not look abnormal to me.
--- NOTE | 2018-06-10 09:25 | XRay Report ---
XR chest 2V routine CLINICAL HISTORY: ground glass opacities dyspnea COMPARISON STUDY: 06/09/2018 FINDINGS: Improved aeration both lung bases. Mild residual bibasilar atelectasis. Atelectatic change right midlung. Minimal residual right apical pneumothorax with a maximum pleural s eparation of 4 mm. IMPRESSION: 1. Improved exam with decrease in prominence of pulmonary vasculature as well as basilar parenchymal change. 2. Minimal residual right apical pneumothorax with a maximum pleural separation of 4 mm. The above report was generated using voice recognition software. It may contain grammatical, syntax or spelling errors. Electronically signed by: Elgin Casey M.D. 06/10/2018 9:24 AM
[2018-06-10] MEDS: FUROSEMIDE 40 MG TAB PO SCH (09:43)
[2018-06-10] MEDS: CETIRIZINE HCL 10 MG TABLET PO SCH (09:43)
[2018-06-10] MEDS: ENOXAPARIN INJ 40 MG/0.4 ML SYR SQ SCH (09:44)
[2018-06-10] MEDS: POTASSIUM CHLORIDE 20 MEQ TABCR PO SCH (09:44)
[2018-06-10] MEDS: FLUTICASONE HFA 220 MCG INHALER INH SCH (09:45)
[2018-06-10] MEDS: DOCUSATE SODIUM 100 MG CAP PO SCH (09:45)
--- NOTE | 2018-06-10 09:52 | Progress Note ---
DATE: 06/10/2018 PULMONARY MEDICINE PROGRESS NOTE Chart reviewed, the patient examined. SUBJECTIVE: The patient seems better, slept better, ambulating with less dyspnea as well as approximately 6 kilograms of water weight with vigorous diuresis. Appreciate Dr. Balbuena's assessment, I thought that some of the x-ray, radiographic findings showed some interstitial edema superimposed on his interstitial pneumonitis. The biopsies are still pending. Recent echo to be reviewed, but spoke with Dr. Balbuena and felt we could discharge the patient on Dyazide or hydrochlorothiazide today with a tapered course of prednisone and another week of oral doxycycline. The patient has continued to show improvement. Stress testing 2 weeks ago showed excellent exercise tolerance. PHYSICAL EXAMINATION: VITAL SIGNS: Today, blood pressure 132/84, pulse 52 and regular, respiratory rate 16, temperature 36.5, O2 sat 94% on room air. SKIN: Warm and dry. HEENT: Atraumatic, normocephalic. PERRLA. LUNGS: Some fine crackles, distant P and A. CARDIAC: Regular rate and rhythm. I do not appreciate a gallop. ABDOMEN: Soft, scaphoid. No evidence of hepatosplenomegaly. EXTREMITIES: No pedal edema, clubbing or cyanosis. NEUROLOGICAL: Intact. No lateralizing signs. LABORATORY DATA: The patient's white count is 13,000, H and H is stable. BUN and creatinine acceptable. Additional serologies are pending. Cultures from the tissue, sterile today. OVERALL ASSESSMENT: A 52-year-old with a subacute presentation for an interstitial pneumonitis past with an element of interstitial edema, showing marked improvement, I believe the patient can be discharged today on 1 Dyazide tablet 37.5/25 without need for potassium supplementation and a steroid taper over 8 days. 40/40, 30/30, etc. An additional 1 week of oral doxycycline 100 mg p.o. b.i.d. I would be happy to see him in the clinic in followup and in addition, I would do a 6-minute ambulation study on room air to check for oxygenation.
[2018-06-10] MEDS: methylPREDNISolone 40 MG in SYRINGE 0 ML IV SCH (10:25)
--- NOTE | 2018-06-10 11:50 | Discharge Summary ---
Date of Service June 10, 2018 Admission HPI Per Admitting Provider 52-year-old male with a history of asthma and hyperlipidemia presents with leukocytosis and hypoxia. Patient was getting lab work today and was found to have a white count of 31,000. The patient was being evaluated for pulmonary symptoms and fevers that he has been having for the past couple monthsstarting in January. The patient has had follow-up with primary care doctor and is been treated for asthma exacerbation and atypical pneumonia with 2 courses of Z-Michael. The patient states that he gets better for a little bit but the symptoms return. His symptoms include dyspnea with exertion, cough, fever and fatigue. He states that the fever happens in the evenings a couple times throughout the week and his temperature is usually as high as 102 F. His states that she is also been sick during this duration, but not as sick. She is also been on antibiotics. Patient denies hemoptysis. He denies travel, IV drug use, risky sexual activity, concern for HIV. 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 He does describe that he was cleaning his basement this January before the symptoms began. He was digging and states that there was a lot of mold in the basement. Abdomen; no abdominal pain, no nausea/vomiting/diarrhea Chest; no chest pain, no hemoptysis MSK; no joint pains, no calf tenderness Skin; no rash, no redness or warmth of the skin ; no issues with urinationno hematuria, no dysuria, no increased frequency Admission Exam Per Admitting Provider Constitutional: WD/WN, vitals as above Eyes: PERRL, conjunctivae normal, anicteric sclerae ENMT: external ear and nose normal, oropharynx normal Neck: trachea midline, no thyromegaly Respiratory: normal respiratory effort, lungs clear to auscultation Auscultation: + crackles (Bilateral bases) Cardiovascular: RRR, no murmur, no edema Gastrointestinal (Abdomen): normal bowel sounds, soft, nontender, no hepatosplenomegaly Skin: no rashes, warm and dry Neurologic: PERRL, EOMI, accommodation nl, no face palsy, no dysarthria Psychiatric: A+Ox3, euthymic affect Principal Diagnosis Dyspnea; Interstitial Pneumonitis with interstitial edema Discharge Exam Constitutional WD/WN, vitals as above cooperative and comfortable Eyes + anicteric sclerae and EOM intact bilaterally Neck normal visual inspection and trachea midline Respiratory normal respiratory effort, lungs clear to auscultation Cardiovascular Rate/Rhythm: regular rate and regular rhythm Extremities: no pedal edema Chest (Breasts) Additional Comments: Right mid axillary incision wound is well healing, intact, dry, without erythema or signs of infection. Musculoskeletal no cyanosis or clubbing, extremities motor strength 5/5 Skin no rashes, warm and dry Neurologic moves all extremities and awake Psychiatric A+Ox3, euthymic affect Discharge Data Allergies Allergy/AdvReac Type Severity Reaction Status Date / Time bee venom protein (honey bee) Allergy Severe Anaphylaxis Verified 06/07/18 01:13 Penicillins Allergy Intermediate RASH Unverified 06/06/18 22:41 Consultations 06/06/18 21:38 ED Decision to Admit Stat 06/07/18 00:45 Consult Pulmonology Routine 06/07/18 15:55 Consult Thoracic Surgery Routine 06/09/18 10:28 Consult Cardiology Routine Procedures Performed Operation Date: 06/08/18 07:15 Actual Procedures p Right thoracoscopy with wedge biopsy Right Upper Lobe, Right Middle Lobe, Right Lower Lobe - Cj Monsivais MD, FACS Ordered Studies 06/06/18 21:30 CT angio chest PE protocol Stat IMPRESSION: 1. Suboptimal lower lobe pulmonary arterial opacification, but no evidence of acute pulmonary embolism 2. Mild mediastinal and hilar lymphadenopathy 3. Diffuse increased groundglass attenuation the lungs. Diagnostic considerations include a diffuse infectious/inflammatory process, or atypical presentation of pulmonary edema. Clinical and radiographic follow-up is recommended Hospital Course (1) Shortness of breath: (1) Shortness of breath: 52 year old man with PMHx of obstructive PFT results who presents with leukocytosis, hypoxia and URI symptoms of approximately 3 months duration. Hypoxia with URI symptoms and leukocytosis. - Comfortable and oxygenating well on room air. -s/p R thoracoscopy with wedge biopsy of RUL, RML and RLL on 06/08 - Gram stain and fungal smear showing no bacteria or fungal hyphae or spores - Biopsy Results and cultures pending -CT shows ground glass opacifications and DDx is broad (atypical pneumonia, interstitial pneumonia, hypersensitivity pneumonia) -ESR, CRP also elevated. CHRIS Negative. -EBV IgG Ab-POSITIVE, EBV Early antigen POSITIVE. Appreciate pulm recs. -cryptococcal antigen negative. -Lyme, HIV, flu, mono negative. -Legionella, Mycoplasma, Aspergillosis, TB results PENDING -peripheral smear shows reactive leukocytosis. -s/p 2 azithromycin courses since January -Kept on doxycycline here. MRSA nasal swab NEGATIVE. -concern of fluid overload. Received dose of lasix with improvement. Echo ordered. Follow. -Cardiology consulted - Fluid overload not the likely etiology of symptoms. -Per recs from Pulm Dr. Brannon * subacute presentation for interstitial pneumonitis with element of interstitial edema showing marked improvement. * Will discharge home with Dyazide tablet 37.5/25 without need for potassium supplementation and a steroid taper of 8 days starting at 40/40, then 30/30, 20/20, 10/10; Additional one week of Doxycycline 100mg BID for 7 days. * A two-step was performed and was negative Asthma -continue home fluticasone inhaler, cetirizine and Singulair Hyperlipidemia -continue home lipitor Code: FULL CODE DVT Proph: SCDs Total Time Total Time Spent Total Time Spent (In Minutes): 30 Total Time Includes: Examination of the Patient, Discharge Planning, Medication Reconciliation and Communication With Other Providers Discharge Plan Discharge Items Patient Disposition: Home - Self-Care Reason For Visit: LEUKOCYTOSIS, HYPOXIA Discharge Diagnosis: Hypoxia - Uncertain etiology Discharge Goals: Improve disease control Activity: Resume your previous activity Non-emergency contact: Primary Care Provider Call non-emergency contact if: your symptoms worsen Follow-up/Referrals: Danay Bingham MD [Primary Care Provider] - Diet: Low Sodium (2gm) Addtl Provider Instructions: Mr. Arenas, yordy were admitted and treated for Hypoxia (low oxygenation state) of uncertain etiology. Consultation with Lung Specialist, Dr. Brannon, provided a diagnosis of interstitial pnuemonitis with element of interstitial edema that has improved with hospital treatment. Your oxygen levels (hypoxia) has resolved and you do not require any supplmental oxygen at home. You will need to continue/take the following medications upon discharge home: * Dyazide 37.5/25 tablet, take one daily. This is a diuretic to prevent fluid from accumulating in your lungs. * Prednisone Steroid Taper. Start by with taking 40mg (Four, 10mg tablets) for two days, then take 30mg (Three, 10mg tablets) for two days, then take 20mg (two, 10 mg tablets) for two days, then 10mg (one, 10 mg tablet) for two days. * Doxycycline 100mg. Take one tablet twice per day, AM/PM or every 12 hours, for one week. This is an antibiotic that you have been on during hospitalization. Your biopsies and cultures from thorascopy are still pending. Please follow up with your Primary Care Doctor for next available appointment for hospital follow up. Please call for appointment for follow up with Lung Specialist Dr. Brannon. Please return to [facility] ED if you are experiencing worsening shortness of breath or call 911 for medical intervention. Prescriptions: New triamterene-hydrochlorothiazid [Dyazide] 37.5-25 mg capsule 1 cap PO DAILY Qty: 30 RF: 0 prednisone 10 mg tablet 10 mg PO DAILY Qty: 20 RF: 0 doxycycline hyclate 100 mg capsule 100 mg PO BID 7 Days Qty: 14 RF: 0 Continued cetirizine [Zyrtec] 10 mg Tablet 10 mg PO DAILY RF: 0 atorvastatin [Lipitor] 10 mg tablet 10 mg PO DAILY RF: 0 ibuprofen 200 mg Tablet 400 mg PO TID PRN (Reason: Pain) RF: 0 montelukast [Singulair] 10 mg tablet 10 mg PO DAILY RF: 0 Arnuity Ellipta 100 mcg/actuation blister with device 1 puff inhalation DAILY RF: 0 Kumbucha 1 dose PO DAILY RF: 0 multivitamin Tablet 1 tab PO DAILY RF: 0 Stand-Alone Forms: [facility]/Other Patient Handouts: ED Diet Low Salt 2Gm Discharge Orders: Discharge Order (Routine); Ordered 06/10/18 Ordered By: Charles Ortez Admission Data Admit Date/Time: 06/06/18 23:29 Attending Provider: Rachel Champagne Admit Provider: Ralph Kapoor Primary Care Provider: Danay Bingham Other Providers: Kori Hu ; Cj Monsivais ; Prieto Brannon ; Shaq Balbuena Service: Medical Other Interventions: Discharge Summary Assessment (RN) Last Done: 06/10/18 10:51 DC Date/Time DO NOT enter until pt leaves facility: 06/10/18 13:05 Supervising Physician Co-Signing Physician Notes Resident Physician Supervision Note: I independently interviewed and examined the patient and verified the orantes history and physical, reviewed labs and image studies, discussed the case with the resident Dr. Ortez and agree with the findings and care plan. Time spent in discharge 35 min Resident Activity Tracking Resident Involvement: Resident Care Provided Care Provided: Adult [facility]
[2018-06-13 19:02] LABS: Aspergillus Ag Index 0.06 (<0.50); Aspergillus Antigen, Serum Not Detected (Not Detected); Aspergillus Flavus Negative (Negative); Aspergillus Niger Negative (Negative); Immunoglobulin IgE 136 KU/L (<115); LSP % Cells Analyzed CD4 69 % (30-61); LSP % of Cells Analyzed CD8 15 % (12-42); LSP Absolute Count CD8 164 cells/uL (180-1170); LSP Absolute Ct CD4 745 cells/uL (490-1740); LSP CD4/CD8 Ratio 4.54 (0.86-5.00); LSP Lymphocytes Absolute 1082 cells/uL (850-3900); Legionella pneumoph IgM, IFA <1:256 TITER; Mycoplasma pneumoniae Ab, IgG >5.00 (<=0.90); Mycoplasma pneumoniae Ab, IgM 845 U/mL (<770); Quantiferon Mitogen-NIL >10.00 IU/ML; Quantiferon NIL 0.01 IU/ML; Quantiferon TB Gold Plus NEGATIVE (NEGATIVE); Quantiferon TB2-NIL 0.01 IU/ML; Rast Aspergillus fumigatus IgG 18.9 mcg/mL (<2.0)
== END 2018-06-10 13:05 | disposition home or self-care (01) | DRG 167 ==
LOC: ED 19:45 → 4E 23:29 → SUATTDRO 23:29 → 4E 06-07 00:42 → 3W 06-08 08:26